=== PATIENT | female | born 1945 | race Caucasian/White ===

== ENCOUNTER 2017-12-06 13:01 | Outpatient (REF) | payer MEDICARE, OTHER, SELFPAY ==
[2017-12-06 23:13] LABS: Anion Gap 4.9 mmol/L (3-11); BUN 18 mg/dL (7-18); CO2 27.1 mmol/L (21.0-32.0); Calcium 8.7 mg/dL (8.5-10.1); Chloride 101 mmol/L (98-107); Estimated GFR 40.26 (mL/min/1.73m2); Glucose 86 mg/dL (70-100); Potassium 4.6 mmol/L (3.5-5.1); Sodium 133 mmol/L (136-145)
== END 2017-12-06 13:21 ==
LOC: NCHCN 13:01
PROVIDERS: PCP Nurse Practitioner Family; Visit Provider Nurse Practitioner Family
DX: I10 Essential (primary) hypertension (principal)
CPT/HCPCS: 80048

== ENCOUNTER 2018-01-05 11:58 | Outpatient (REF) | payer MEDICARE, OTHER, SELFPAY ==
[2018-01-09 10:20] LABS: Hepatitis C Ab w Rflx HCV PCR Negative (NEGAT)
== END 2018-01-05 12:18 ==
LOC: NCHCN 11:58
PROVIDERS: PCP Nurse Practitioner Family; Visit Provider Nurse Practitioner Family
DX: F41.9 Anxiety disorder, unspecified (principal); E03.9 Hypothyroidism, unspecified; Z01.84 Encounter for antibody response examination; I25.10 Atherosclerotic heart disease of native coronary artery without angina pectoris; R91.8 Other nonspecific abnormal finding of lung field
CPT/HCPCS: 86803

== ENCOUNTER 2018-02-20 08:07 | Day surgery (SDC) | payer MEDICARE, OTHER, SELFPAY ==
--- NOTE | 2018-02-19 12:41 | POEE_ITS ---
History of Present Illness Chief Complaint: Progressive decreased vision, left eye Narrative: The patient is a 72-year old female with history of progressive decreased vision in both eyes at both distance and near, left eye worse than right. She notes cloudy foggy, blurry, and fuzzy vision in the left eye. On examination she was noted to have moderate nuclear and cortical cataract with advanced posterior subcapsular cataract of the left eye with visual acuity of 20 /400 best corrected in the left eye. The option of cataract surgery was offered to the patient and she wished to proceed. NOTE: The Chief Complaint, HPI, Past Medical History, Past Surgical History, Family History, Social History, Medications, and complete Ophthalmic Exam with detailed Assessment and Plan have already been documented in the patient's outpatient ophthalmic record and are not covered again in detail here. PFSH Medical History Cortical cataract of left eye (Acute) Nuclear sclerotic cataract of left eye (Acute) Posterior subcapsular age-related cataract of left eye (Acute) Social History Smoking/Tobacco Use Status: Former Tobacco Use Meds Home Medications Medication Instructions Recorded Confirmed Type aspirin [Aspir-81] 1 tab PO DAILY 05/13/13 02/15/18 History losartan 1 tab PO DAILY 05/13/13 02/15/18 History metoprolol tartrate 1 tab PO BID 05/13/13 02/15/18 History pravastatin 1 tab PO HS 05/13/13 02/15/18 History tiotropium bromide [Spiriva with 1 inh INHALATION DAILY 05/13/13 02/15/18 History HandiHaler] albuterol sulfate 3 ml UPD Q2H PRN PRN #90 vial 05/16/13 02/15/18 Rx buspirone 15 mg PO TID 07/23/14 02/15/18 History bupropion HCl [Wellbutrin] 150 mg PO BID 06/14/15 02/15/18 History clonazepam 0.5 - 1 tab PO HS PRN 06/14/15 02/16/18 History amlodipine 5 mg PO DAILY #30 tab-cap 08/04/16 02/15/18 History acetaminophen-codeine 1 ea PO Q6H PRN #5 tablet 09/09/16 02/16/18 Rx [Tylenol-Codeine #3] budesonide-formoterol [Symbicort] 2 puff INHALATION BID #1 hfa.aer.[email or web address] 09/09/16 02/15/18 Rx loratadine 1 tab PO DAILY 07/31/17 02/15/18 History meloxicam 7.5 mg PO BID #60 tab 10/11/17 02/15/18 Rx albuterol sulfate [Ventolin HFA] 2 puff INHALATION .Q4-6 PRN 02/15/18 02/15/18 History cholecalciferol (vitamin D3) 1,000 unit PO DAILY 02/15/18 02/15/18 History [Vitamin D3] clobetasol 1 applic TOPICAL BID 02/15/18 02/15/18 History docusate sodium 100 mg PO DAILY 02/15/18 02/15/18 History levothyroxine 25 mcg PO DAILY 02/15/18 02/15/18 History montelukast [Singulair] 10 mg PO DAILY 02/15/18 02/15/18 History nitroglycerin [Nitrostat] 0.4 mg SUBLINGUAL ONCE 02/15/18 02/15/18 History Allergies Allergy/AdvReac Type Severity Reaction Status Date / Time amoxicillin Allergy Intermediate Hives Unverified 02/16/18 10:55 clarithromycin Allergy Intermediate Hives Verified 02/16/18 10:55 Penicillins Allergy Intermediate Hives Unverified 02/16/18 10:55 Exam OCULAR EXAM:: Visual acuity at distance: Best corrected visual acuity is 20/25 right eye, 20/400 left eye. Pupils: Pupils equal, round, and reactive without afferent pupillary defect IOP: 17 OD, 18 OS Extraocular Motility: Normal Pertinent Slit Lamp Findings: Significant for pupils dilating to 6 mm OU. 2+ nuclear with 2+ cortical and 1+ posterior subcapsular cataract in the right eye. In the left eye there is a 2+ nuclear and cortical cataract with 2-3+ posterior subcapsular cataract. Dilated Funduscopic Examination: Disc cupping is 0.25 OD, 0.4 OS with questionable inferotemporal thinning of the disc margin in the left eye. The retinal vasculature is normal. The macula, peripheral retina and vitreous is normal. BRIGHTNESS ACUITY TESTING (BAT):: Off left eye 20/400 Low: 20/400 Medium: Less than 20/400 High: Less than 20/400 Assessment and Plan (1) Posterior subcapsular age-related cataract of left eye: Current visit: No Status: Acute Assessment: Visually significant cataract, left eye. Plan: Cataract extraction with intraocular lens implantation, left eye (2) Nuclear sclerotic cataract of left eye: Current visit: No Status: Acute Assessment: Visually significant cataract, left eye. Plan: Cataract extraction with intraocular lens implantation, left eye (3) Cortical cataract of left eye: Current visit: No Status: Acute Assessment: Visually significant cataract, left eye. Plan: Cataract extraction with intraocular lens implantation, left eye Note: NOTE:: The details of the planned surgery, including the risks, indications, limitations,expectations,outcome and possible complications were explained to the patient. The patient understands the complications including, but not limited to: infection, hemorrhage, posterior dislocation of the lens or nuclear fragments which may require the intervention of a vitreoretinal surgeon, possible loss of the eye, or from anesthetic complications. The patient has been made aware of the option of not having surgery, that vision following surgery may not be equal to that prior to surgery, and that the planned surgery may not achieve the intended results. Following this discussion, which the patient appeared to understand, the patient wishes to proceed with cataract surgery with lens implantation of the affected eye to improve and maximize vision.
[2018-02-20 08:29] VITALS: BP 156/76; PULSE 64; RESP 16; TEMP 36.6; O2SAT 96
[2018-02-20] MEDS: Tetracaine 0.5% 4 ML BTL OS ×3 (08:36→10:16)
[2018-02-20] MEDS: Lactated Ringers 1,000 ML 80 ML IV (10:04)
[2018-02-20] MEDS: Trypan Blue 0.06% 0.5 ML SYR (10:13)
[2018-02-20] MEDS: Balanced Salt Soln.-PLUS 500 ML BAG (10:13)
[2018-02-20] MEDS: Lidocaine 1% Pres-Free 5 ML VIAL (10:13)
[2018-02-20] MEDS: Lidocaine 2% Jelly 6 ML SYR (10:16)
[2018-02-20] MEDS: Povidone-Iodine Ophth 30 ML BTL (10:17)
--- NOTE | 2018-02-20 10:44 | W.PM.DSUDISC ---
Discharge Plan Discharge Details Reason For Visit: CATARACT OS Attending Provider: Jersey Neri Primary Care Provider: Vera Campoverde Home Meds and New Rx's Prescriptions: No Action amlodipine 5 MG tablet 5 mg PO DAILY Qty: 30 RF: 0 meloxicam 7.5 MG tablet 7.5 mg PO BID Qty: 60 RF: 0 losartan 50 MG tablet 1 tab PO DAILY RF: 0 pravastatin 40 MG tablet 1 tab PO HS RF: 0 metoprolol tartrate 100 MG tablet 1 tab PO BID RF: 0 aspirin [Aspir-81] 81 MG tablet,delayed release (DR/EC) 1 tab PO DAILY RF: 0 tiotropium bromide [Spiriva with HandiHaler] 1 PUFF capsule, w/inhalation device 1 inh Inhalation DAILY RF: 0 albuterol sulfate 3 ML solution for nebulization 3 ml UPD Q2H PRN PRNQty: 90 RF: 0 buspirone 15 MG tablet 15 mg PO TID RF: 0 clonazepam 0.5 MG tablet 0.5 - 1 tab PO HS PRNRF: 0 bupropion HCl [Wellbutrin] 100 MG tablet 150 mg PO BID RF: 0 acetaminophen-codeine [Tylenol-Codeine #3] 1 EACH tablet 1 ea PO Q6H PRNQty: 5 RF: 0 budesonide-formoterol [Symbicort] 10.2 GM HFA aerosol inhaler 2 puff Inhalation BID Qty: 1 RF: 0 loratadine 10 MG tablet 1 tab PO DAILY RF: 0 clobetasol 0.05 % Cream 1 applic TOPICAL BID RF: 0 nitroglycerin [Nitrostat] 0.4 mg Tablet, Sublingual 0.4 mg SUBLINGUAL ONCE RF: 0 docusate sodium 100 mg Capsule 100 mg PO DAILY RF: 0 montelukast [Singulair] 10 mg Tablet 10 mg PO DAILY RF: 0 albuterol sulfate [Ventolin HFA] 90 mcg/actuation Hfa Aerosol Inhaler 2 puff INHALATION .Q4-6 PRN RF: 0 cholecalciferol (vitamin D3) [Vitamin D3] 1,000 unit Capsule 1,000 unit PO DAILY RF: 0 levothyroxine 25 mcg Capsule 25 mcg PO DAILY RF: 0 Discharge Instructions Stand Alone Forms: Post-op Topical Cataract, Geovanna Ganey (DSU) DS: Diagnosis Discharge Diagnosis (1) Posterior subcapsular age-related cataract of left eye: Status: Resolved (2) Nuclear sclerotic cataract of left eye: Status: Resolved (3) Cortical cataract of left eye: Status: Resolved (4) Status post cataract extraction and insertion of intraocular lens of left eye: Status: Chronic
--- NOTE | 2018-02-20 10:45 | W.PM.OP ---
Date of service: 02/20/18 Time of Service: 10:45 Operative Note DATE OF PROCEDURE: 02/20/18 PRE-OP DIAGNOSIS: Cataract, left eye, with poor red reflex POST-OP DIAGNOSIS: same PROCEDURE: Cataract extraction using phacoemulsification with intraocular lens implant, left eye, using capsular staining with Vision Blue SURGEON: Jersey Neri ANESTHESIA: MAC (with local sub-tenon's anesthetic injection) COMPLICATIONS: None Patient was transported to: same day Patient's condition: stable Implants: Raghavendra and Raghavendra / [employer] Tecnis [id number] Indications: Progressive decreased vision due to cataract, left eye, with poor red reflex Procedure Description: CATARACT SURGERY OPERATIVE REPORT PREOPERATIVE DIAGNOSIS: 1. Nuclear/cortical/posterior subcapsular cataract, left eye 2. Poor red reflex secondary to #1 POSTOPERATIVE DIAGNOSIS: Same OPERATION: 1. Cataract extraction using phacoemulsification with posterior chamber intraocular lens implant, left eye. 2. Capsular staining with Vision Blue IOL: IOL Auto Porter/Model: Raghavendra & Raghavendra / CATRACHITO Tecnis [id number] IOL Power: + 20.50 diopters IOL Serial Number: [id number] Optic Diameter: 6.0 mm Haptic/Overall Diameter: 13.0 mm PHACO INFO: Santosh Centurion Vision System with OZil and Active Fluidics Cumulative Dispersed Energy (CDE): 14.71 seconds SURGEON: Jersey Neri MD, TANIYA ANESTHESIA: Monitored [facility] Care (MAC), with local sub-tenon's anesthetic infiltration COMPLICATIONS: None SPECIMENS: None INDICATIONS FOR PROCEDURE: The patient is a 72-year-old female with history of progressive decreased vision in her left eye. She is noted to have a moderate nuclear and cortical cataract with a dense posterior subcapsular cataract with visual acuity of 20/400. The option of cataract surgery was offered to the patient and she wished to proceed. PROCEDURE: The correct surgical eye was identified and marked as the left eye and the pupil was dilated in the preoperative area using mydriatics and cycloplegics. The dilated pupil size was 7.0 mm. Oral sedation was administered in the form of an Imprimis MKO Melt (midazolam 3mg/ketamine 25mg/ondansetron 2mg). . .The patient was brought to the operating room where cardiopulmonary monitoring was instituted and surgical time-out was performed, confirming the correct operative eye and IOL power. She recieved 1mg of IV Versed in the OR for additional sedation. Topical anesthesia was administered and ophthalmic povidone-iodine 5% was instilled into the conjunctival fornices. Lidocaine gel was applied to the cornea and the taye-ocular area was prepped with Betadine 10% solution and draped in the usual sterile fashion for intraocular surgery. Steri-strips were used to cover the lashes and lid margins and an adhesive eye drape was placed. Care was taken to isolate the lashes and lid margins under the Steri-strips and adhesive eye drape. A lid speculum was placed between the lids of the operative eye and the Duane-Barb operating microscope was maneuvered into position. Romana scissors were then used to make a conjunctival buttonhole approximately 6mm posterior to the limbus in the inferonasal quadrant. Blunt dissection was carried out to expose bare sclera, and a blunt-tipped sub-tenon?s anesthesia cannula was introduced and passed posteriorly along the globe where non-preserved plain lidocaine was injected into posterior sub-Tenon?s space. A sideport knife was used to make a paracentesis port at the 12:00 position. Air was injected into the anterior chamber, followed by Vision Blue, which was painted over the anterior capsule and then irrigated out using BSS. The anterior chamber was filled with Healon GV. A 2.4mm keratome knife was used to create a half-thickness groove at the limbus and then to construct a three-plane near-clear corneal tunnel extending 2.0mm into clear cornea at the 3:00 position. A flap was raised on the anterior capsule and capsulorhexis forceps were used to complete a continuous curvilinear capsulorhexis of 5.5mm. Balanced salt solution was then used to perform cortical cleaving hydrodissection and nuclear hydrodelineation until the lens could be freely rotated within the capsular bag. The lens nucleus was then disassembled and removed within the capsular bag and iris plane using phacoemulsification. Residual cortical material was removed using the 45-degree angled silicone I/A tip with 0.3mm port. The posterior capsule was carefully polished to remove as much residual lens epithelial cells as safely possible. The capsular bag was then inflated and the anterior chamber deepened with viscoelastic. The lens implant described above was inserted into the capsular bag using the CATRACHITO [place] Injector. A Kuglen hook was used to dial the IOL into position. Residual viscoelastic was then removed first from posterior to the IOL, then from the anterior chamber using the I/A handpiece. The lens implant was noted to center nicely within the capsular bag. The incisions were stromally hydrated, and the anterior chamber was reformed using BSS. Then 0.4cc of moxifloxacin 1.5mg/ml were injected into the capsular bag and anterior chamber. The incisions were checked with a Weck spear and found to be secure. Several drops of ophthalmic povidone-iodine 5% were then applied to the eye followed by two drops of Imprimis combination moxifloxacin/dexamethasone solution. The drapes were removed and a clear plastic protective eye shield was placed over the eye. The patient was then returned to Same Day Surgery in stable condition.
--- NOTE | 2018-02-20 10:50 | ROE_ITS ---
Date of service: 02/20/18 Time of Service: 10:45 Operative Note DATE OF PROCEDURE: 02/20/18 PRE-OP DIAGNOSIS: Cataract, left eye, with poor red reflex POST-OP DIAGNOSIS: same PROCEDURE: Cataract extraction using phacoemulsification with intraocular lens implant, left eye, using capsular staining with Vision Blue SURGEON: Jersey Neri ANESTHESIA: MAC (with local sub-tenon's anesthetic injection) COMPLICATIONS: None Patient was transported to: same day Patient's condition: stable Implants: Raghavendra and Raghavendra / [employer] Tecnis [id number] Indications: Progressive decreased vision due to cataract, left eye, with poor red reflex Procedure Description: CATARACT SURGERY OPERATIVE REPORT PREOPERATIVE DIAGNOSIS: 1. Nuclear/cortical/posterior subcapsular cataract, left eye 2. Poor red reflex secondary to #1 POSTOPERATIVE DIAGNOSIS: Same OPERATION: 1. Cataract extraction using phacoemulsification with posterior chamber intraocular lens implant, left eye. 2. Capsular staining with Vision Blue IOL: IOL Hydro[employer] Plant Engineer/Model: Raghavendra & Raghavendra / CATRACHITO Tecnis [id number] IOL Power: + 20.50 diopters IOL Serial Number: [id number] Optic Diameter: 6.0 mm Haptic/Overall Diameter: 13.0 mm PHACO INFO: Santosh [employer] Vision System with OZil and Active Fluidics Cumulative Dispersed Energy (CDE): 14.71 seconds SURGEON: Jersey Neri MD, TANIYA ANESTHESIA: Monitored A [facility] Care (MAC), with local sub-tenon's anesthetic infiltration COMPLICATIONS: None SPECIMENS: None INDICATIONS FOR PROCEDURE: The patient is a 72-year-old female with history of progressive decreased vision in her left eye. She is noted to have a moderate nuclear and cortical cataract with a dense posterior subcapsular cataract with visual acuity of 20/ 400. The option of cataract surgery was offered to the patient and she wished to proceed. PROCEDURE: The correct surgical eye was identified and marked as the left eye and the pupil was dilated in the preoperative area using mydriatics and cycloplegics. The dilated pupil size was 7.0 mm. Oral sedation was administered in the form of an Imprimis MKO Melt (midazolam 3mg/ketamine 25mg/ ondansetron 2mg). . .The patient was brought to the operating room where cardiopulmonary monitoring was instituted and surgical time-out was performed, confirming the correct operative eye and IOL power. She recieved 1mg of IV Versed in the OR for additional sedation. Topical anesthesia was administered and ophthalmic povidone-iodine 5% was instilled into the conjunctival fornices. Lidocaine gel was applied to the cornea and the taye-ocular area was prepped with Betadine 10% solution and draped in the usual sterile fashion for intraocular surgery. Steri-strips were used to cover the lashes and lid margins and an adhesive eye drape was placed. Care was taken to isolate the lashes and lid margins under the Steri-strips and adhesive eye drape. A lid speculum was placed between the lids of the operative eye and the Duane-Barb operating microscope was maneuvered into position. Romana scissors were then used to make a conjunctival buttonhole approximately 6mm posterior to the limbus in the inferonasal quadrant. Blunt dissection was carried out to expose bare sclera, and a blunt-tipped sub-tenon? s anesthesia cannula was introduced and passed posteriorly along the globe where non-preserved plain lidocaine was injected into posterior sub-Tenon?s space. A sideport knife was used to make a paracentesis port at the 12:00 position. Air was injected into the anterior chamber, followed by Vision Blue, which was painted over the anterior capsule and then irrigated out using BSS. The anterior chamber was filled with Healon GV. A 2.4mm keratome knife was used to create a half-thickness groove at the limbus and then to construct a three-plane near-clear corneal tunnel extending 2.0mm into clear cornea at the 3 :00 position. A flap was raised on the anterior capsule and capsulorhexis forceps were used to complete a continuous curvilinear capsulorhexis of 5.5mm. Balanced salt solution was then used to perform cortical cleaving hydrodissection and nuclear hydrodelineation until the lens could be freely rotated within the capsular bag. The lens nucleus was then disassembled and removed within the capsular bag and iris plane using phacoemulsification. Residual cortical material was removed using the 45-degree angled silicone I/A tip with 0.3mm port. The posterior capsule was carefully polished to remove as much residual lens epithelial cells as safely possible. The capsular bag was then inflated and the anterior chamber deepened with viscoelastic. The lens implant described above was inserted into the capsular bag using the CATRACHITO [place] Injector. A Kuglen hook was used to dial the IOL into position. Residual viscoelastic was then removed first from posterior to the IOL, then from the anterior chamber using the I/A handpiece. The lens implant was noted to center nicely within the capsular bag. The incisions were stromally hydrated , and the anterior chamber was reformed using BSS. Then 0.4cc of moxifloxacin 1.5mg/ml were injected into the capsular bag and anterior chamber. The incisions were checked with a Weck spear and found to be secure. Several drops of ophthalmic povidone-iodine 5% were then applied to the eye followed by two drops of Imprimis combination moxifloxacin/dexamethasone solution. The drapes were removed and a clear plastic protective eye shield was placed over the eye. The patient was then returned to Same Day Surgery in stable condition.
[2018-02-20 11:00] VITALS: BP 138/80; PULSE 64; RESP 16; TEMP 36.6; O2SAT 94
== END 2018-02-20 11:15 | disposition home or self-care (01) ==
LOC: SUR 08:07
PROVIDERS: PCP Nurse Practitioner Family; Visit Provider Ophthalmology
PROC: (CPT 66982; principal; 2018-02-20 10:30)
DX: H25.812 Combined forms of age-related cataract, left eye (principal); H35.89 Other specified retinal disorders; J44.9 Chronic obstructive pulmonary disease, unspecified; I10 Essential (primary) hypertension
CPT/HCPCS: 66982; V2632; J2250

== ENCOUNTER 2018-03-06 07:00 | Day surgery (SDC) | payer MEDICARE, OTHER, SELFPAY ==
--- NOTE | 2018-03-05 15:29 | POEE_ITS ---
History of Present Illness Chief Complaint: Progressive decreased vision, right eye Narrative: The patient is a 72-year-old female with history of progressive decreased vision in both eyes at both distance and near, left eye worse than right. She noted cloudy foggy blurry and fuzzy vision with significant glare from headlights. On examination she was noted to have bilateral nuclear cortical and posterior subcapsular cataract, left eye greater than right. She underwent cataract surgery in the left eye on 02/20/2018. Postoperatively she has regained uncorrected visual acuity of 20/20. She now presents for cataract surgery of the right eye. NOTE: The Chief Complaint, HPI, Past Medical History, Past Surgical History, Family History, Social History, Medications, and complete Ophthalmic Exam with detailed Assessment and Plan have already been documented in the patient's outpatient ophthalmic record and are not covered again in detail here. PFSH Cortical cataract of right eye (Acute) Nuclear sclerotic cataract of right eye (Acute) Posterior subcapsular age-related cataract, right eye (Acute) Cortical cataract of left eye (Resolved) Nuclear sclerotic cataract of left eye (Resolved) Posterior subcapsular age-related cataract of left eye (Resolved) Status post cataract extraction and insertion of intraocular lens of left eye ( Chronic 02/20/18) Medical History Cortical cataract of right eye (Acute) Nuclear sclerotic cataract of right eye (Acute) Posterior subcapsular age-related cataract, right eye (Acute) Cortical cataract of left eye (Resolved) Nuclear sclerotic cataract of left eye (Resolved) Posterior subcapsular age-related cataract of left eye (Resolved) Social History Smoking/Tobacco Use Status: Former Tobacco Use Surgical History Status post cataract extraction and insertion of intraocular lens of left eye ( Chronic 02/20/18) Social History Smoking/Tobacco Use Status: Former Tobacco Use Meds Home Medications Medication Instructions Recorded Confirmed Type aspirin [Aspir-81] 1 tab PO DAILY 05/13/13 02/15/18 History losartan 1 tab PO DAILY 05/13/13 02/15/18 History metoprolol tartrate 1 tab PO BID 05/13/13 02/15/18 History pravastatin 1 tab PO HS 05/13/13 02/15/18 History tiotropium bromide [Spiriva with 1 inh INHALATION DAILY 05/13/13 02/15/18 History HandiHaler] albuterol sulfate 3 ml UPD Q2H PRN PRN #90 vial 05/16/13 02/15/18 Rx buspirone 15 mg PO TID 07/23/14 02/15/18 History bupropion HCl [Wellbutrin] 150 mg PO BID 06/14/15 02/15/18 History clonazepam 0.5 - 1 tab PO HS PRN 06/14/15 02/20/18 History amlodipine 5 mg PO DAILY #30 tab-cap 08/04/16 02/15/18 History acetaminophen-codeine 1 ea PO Q6H PRN #5 tablet 09/09/16 02/20/18 Rx [Tylenol-Codeine #3] budesonide-formoterol [Symbicort] 2 puff INHALATION BID #1 hfa.aer.ad 09/09/16 02/15/18 Rx loratadine 1 tab PO DAILY 07/31/17 02/15/18 History meloxicam 7.5 mg PO BID #60 tab 10/11/17 02/15/18 Rx albuterol sulfate [Ventolin HFA] 2 puff INHALATION .Q4-6 PRN 02/15/18 02/20/18 History cholecalciferol (vitamin D3) 1,000 unit PO DAILY 02/15/18 02/15/18 History [Vitamin D3] clobetasol 1 applic TOPICAL BID 02/15/18 02/15/18 History docusate sodium 100 mg PO DAILY 02/15/18 02/15/18 History levothyroxine 25 mcg PO DAILY 02/15/18 02/15/18 History montelukast [Singulair] 10 mg PO DAILY 02/15/18 02/15/18 History nitroglycerin [Nitrostat] 0.4 mg SUBLINGUAL ONCE 02/15/18 02/15/18 History Allergies Allergy/AdvReac Type Severity Reaction Status Date / Time amoxicillin Allergy Intermediate Hives Unverified 02/16/18 10:55 clarithromycin Allergy Intermediate Hives Verified 02/16/18 10:55 Penicillins Allergy Intermediate Hives Unverified 02/20/18 08:22 Exam OCULAR EXAM:: Most recent ophthalmic exam revealed best corrected visual acuity of 20/30 right eye, 20/20 left eye. Pupils equal, round, and reactive without afferent pupillary defect intraocular pressure is 17 OD, 18 OS. Extraocular motility is normal. Slit-lamp examination is significant for pupils dilating to 6 mm OU. 2+ nuclear with 2+ cortical and 1-2+ posterior subcapsular cataract , right eye. In the left eye there is a well-positioned PCIOL with clear posterior capsule. Funduscopic examination reveals disc cupping of 0.25 OD, 0.4 OS with good color. The optic nerves have good perfusion and normal color. The retinal vasculature is normal without significant tortuosity or abnormality. The maculas are normal in appearance with normal contour and foveal reflex appropriate for age. The peripheral retina and vitreous are normal. BRIGHTNESS ACUITY TESTING (BAT):: Brightness acuity testing on the office setting is 20/30 right eye. Low is 20/40, medium is 20/50, high is 20/80. Assessment and Plan (1) Posterior subcapsular age-related cataract, right eye: Current visit: No Status: Acute Assessment: Visually significant cataract, right eye. Plan: Cataract extraction with intraocular lens implantation, right eye (2) Nuclear sclerotic cataract of right eye: Current visit: No Status: Acute Assessment: Visually significant cataract, right eye. Plan: Cataract extraction with intraocular lens implantation, right eye (3) Cortical cataract of right eye: Current visit: No Status: Acute Assessment: Visually significant cataract, right eye. Plan: Cataract extraction with intraocular lens implantation, right eye Note: NOTE:: The details of the planned surgery, including the risks, indications, limitations,expectations,outcome and possible complications were explained to the patient. The patient understands the complications including, but not limited to: infection, hemorrhage, posterior dislocation of the lens or nuclear fragments which may require the intervention of a vitreoretinal surgeon, possible loss of the eye, or from anesthetic complications. The patient has been made aware of the option of not having surgery, that vision following surgery may not be equal to that prior to surgery, and that the planned surgery may not achieve the intended results. Following this discussion, which the patient appeared to understand, the patient wishes to proceed with cataract surgery with lens implantation of the affected eye to improve and maximize vision.
[2018-03-06 07:11] VITALS: BP 149/54; PULSE 66; RESP 20; TEMP 36.8; O2SAT 93
[2018-03-06] MEDS: Tetracaine 0.5% 4 ML BTL OD ×4 (07:21→08:11)
[2018-03-06] MEDS: Tropicam./Phenyleph. (1/2.5%) 5 ML BTL OD ×3 (07:22→07:39)
[2018-03-06] MEDS: Lidocaine 2% Jelly 6 ML SYR (08:11)
[2018-03-06] MEDS: Povidone-Iodine Ophth 30 ML BTL (08:11)
[2018-03-06] MEDS: Lidocaine 1% Pres-Free 5 ML VIAL (08:16)
[2018-03-06] MEDS: Balanced Salt Soln.-PLUS 500 ML BAG (08:18)
[2018-03-06] MEDS: Trypan Blue 0.06% 0.5 ML SYR (08:20)
--- NOTE | 2018-03-06 08:40 | W.PM.DSUDISC ---
Discharge Plan Discharge Details Reason For Visit: CATARACT OD Attending Provider: Jersey Neri Primary Care Provider: Vera Campoverde Home Meds and New Rx's Prescriptions: No Action amlodipine 5 MG tablet 5 mg PO DAILY Qty: 30 RF: 0 meloxicam 7.5 MG tablet 7.5 mg PO BID Qty: 60 RF: 0 losartan 50 MG tablet 1 tab PO DAILY RF: 0 pravastatin 40 MG tablet 1 tab PO HS RF: 0 metoprolol tartrate 100 MG tablet 1 tab PO BID RF: 0 aspirin [Aspir-81] 81 MG tablet,delayed release (DR/EC) 1 tab PO DAILY RF: 0 tiotropium bromide [Spiriva with HandiHaler] 1 PUFF capsule, w/inhalation device 1 inh Inhalation DAILY RF: 0 albuterol sulfate 3 ML solution for nebulization 3 ml UPD Q2H PRN PRNQty: 90 RF: 0 buspirone 15 MG tablet 15 mg PO TID RF: 0 clonazepam 0.5 MG tablet 0.5 - 1 tab PO HS PRNRF: 0 bupropion HCl [Wellbutrin] 100 MG tablet 150 mg PO BID RF: 0 budesonide-formoterol [Symbicort] 10.2 GM HFA aerosol inhaler 2 puff Inhalation BID Qty: 1 RF: 0 loratadine 10 MG tablet 1 tab PO DAILY RF: 0 nitroglycerin [Nitrostat] 0.4 mg Tablet, Sublingual 0.4 mg SUBLINGUAL ONCE RF: 0 docusate sodium 100 mg Capsule 100 mg PO DAILY RF: 0 montelukast [Singulair] 10 mg Tablet 10 mg PO DAILY RF: 0 albuterol sulfate [Ventolin HFA] 90 mcg/actuation Hfa Aerosol Inhaler 2 puff INHALATION .Q4-6 PRN RF: 0 cholecalciferol (vitamin D3) [Vitamin D3] 1,000 unit Capsule 1,000 unit PO DAILY RF: 0 levothyroxine 25 mcg Capsule 25 mcg PO DAILY RF: 0 Discharge Instructions Stand Alone Forms: Post-op Topical CataractGeovanna (DSU) DS: Diagnosis Discharge Diagnosis (1) Posterior subcapsular age-related cataract, right eye: Status: Resolved (2) Nuclear sclerotic cataract of right eye: Status: Resolved (3) Cortical cataract of right eye: Status: Resolved (4) Status post cataract extraction and insertion of intraocular lens of right eye: Status: Chronic
--- NOTE | 2018-03-06 08:42 | W.PM.OP ---
Date of service: 03/06/18 Time of Service: 08:43 Operative Note DATE OF PROCEDURE: 03/06/18 PRE-OP DIAGNOSIS: Cataract, right eye, with poor red reflex PROCEDURE: Cataract extraction using phacoemulsification with intraocular lens implantation, right eye, using capsular staining with Vision Blue SURGEON: Jersey Neri ANESTHESIA: MAC (with local sub-tenon's anesthetic injection) PATHOLOGY: none sent COMPLICATIONS: None Patient was transported to: same day Patient's condition: stable Implants: Raghavendra and Raghavendra / [employer] Tecnis [id number] Indications: Progressive visual loss due to cataract, right eye Procedure Description: CATARACT SURGERY OPERATIVE REPORT PREOPERATIVE DIAGNOSIS: 1. Nuclear/cortical/posterior subcapsular cataract, right eye 2. Poor red reflex secondary to #1 POSTOPERATIVE DIAGNOSIS: Same OPERATION: 1. Cataract extraction using phacoemulsification with posterior chamber intraocular lens implant, right eye. 2. Capsular staining with Vision Blue IOL: IOL Handbook Writer/Model: Raghavendra & Raghavendra / CATRACHITO Tecnis [id number] IOL Power: + 21.0 diopters IOL Serial Number: [id number] Optic Diameter: 6.0mm Haptic/Overall Diameter: 13.0mm PHACO INFO: Santosh Porterourion Vision System with OZil and Active Fluidics Cumulative Dispersed Energy (CDE): 8.80 seconds SURGEON: Jersey Neri MD, TANIYA ANESTHESIA: Monitored Anesthesia Care (MAC), with local sub-tenon's anesthetic infiltration COMPLICATIONS: None SPECIMENS: None INDICATIONS FOR PROCEDURE: The patient is a 72-year-old female with history of bilateral nuclear cortical and posterior subcapsular cataracts, left eye worse than right. She has already undergone cataract surgery in the left eye and is doing well postoperatively. She now presents for cataract surgery in the right eye. PROCEDURE: The correct surgical eye was identified and marked as the right eye and the pupil was dilated in the preoperative area using mydriatics, cycloplegics, and NSAIDS (except in aspirin allergic patients). The dilated pupil size was 7.0 mm. Oral sedation was administered in the form of an Imprimis MKO Melt (midazolam 3mg/ketamine 25mg/ondansetron 2mg). The patient was brought to the operating room where cardiopulmonary monitoring was instituted and surgical time-out was performed, confirming the correct operative eye and IOL power. Topical anesthesia was administered and ophthalmic povidone-iodine 5% was instilled into the conjunctival fornices. Lidocaine gel was applied to the cornea and the taye-ocular area was prepped with Betadine 10% solution and draped in the usual sterile fashion for intraocular surgery, including an aperture drape. A Tegaderm transparent film dressing was cut in half and used to cover the lashes and lid margins. Care was taken to sequester the lashes and lid margins under the Tegaderm dressing. A lid speculum was placed between the lids of the operative eye and the Duane-Barb operating microscope was maneuvered into position. Romana scissors were then used to make a conjunctival buttonhole approximately 6mm posterior to the limbus in the inferonasal quadrant. Blunt dissection was carried out to expose bare sclera, and a blunt-tipped sub-tenon?s anesthesia cannula was introduced and passed posteriorly along the globe where non-preserved plain lidocaine was injected into posterior sub-Tenon?s space. A sideport knife was used to make a paracentesis port at the 7:00 position. Air was injected into the anterior chamber, followed by Vision Blue, which was painted over the anterior capsule and then irrigated out with BSS. The anterior chamber was filled with Healon GV. A 2.4mm keratome knife was used to create a half-thickness groove at the limbus and then to construct a three-plane near-clear corneal tunnel extending 2.0mm into clear cornea at the 10:00 position. A flap was raised on the anterior capsule and capsulorhexis forceps were used to complete a continuous curvilinear capsulorhexis of 5.5 mm. Balanced salt solution was then used to perform cortical cleaving hydrodissection and nuclear hydrodelineation until the lens could be freely rotated within the capsular bag. The lens nucleus was then disassembled and removed within the capsular bag and iris plane using phacoemulsification. Residual cortical material was removed using the 45-degree angled silicone I/A tip with 0.3mm port. The posterior capsule was carefully polished to remove as much residual lens epithelial cells as safely possible. The capsular bag was then inflated and the anterior chamber deepened with viscoelastic. The lens implant described above was inserted into the capsular bag using the CATRACHITO [place] Injector. A Kuglen hook was used to dial the IOL into position. Residual viscoelastic was then removed first from posterior to the IOL, then from the anterior chamber using the I/A handpiece. The lens implant was noted to center nicely within the capsular bag. The incisions were stromally hydrated, and the anterior chamber was reformed using BSS. Then 0.4cc of moxifloxacin 1.5mg/ml were injected into the capsular bag and anterior chamber. The incisions were checked with a Weck spear and found to be secure. Several drops of ophthalmic povidone-iodine 5% were then applied to the eye followed by two drops of Imprimis combination moxifloxacin/dexamethasone solution. The drapes were removed and a clear plastic protective eye shield was placed over the eye. The patient was then returned to Same Day Surgery in stable condition.
--- NOTE | 2018-03-06 08:45 | ROE_ITS ---
Date of service: 03/06/18 Time of Service: 08:43 Operative Note DATE OF PROCEDURE: 03/06/18 PRE-OP DIAGNOSIS: Cataract, right eye, with poor red reflex PROCEDURE: Cataract extraction using phacoemulsification with intraocular lens implantation, right eye, using capsular staining with Vision Blue SURGEON: Jersey Neri ANESTHESIA: MAC (with local sub-tenon's anesthetic injection) PATHOLOGY: none sent COMPLICATIONS: None Patient was transported to: same day Patient's condition: stable Implants: Raghavendra and Raghavendra / [employer] Tecnis [id number] Indications: Progressive visual loss due to cataract, right eye Procedure Description: CATARACT SURGERY OPERATIVE REPORT PREOPERATIVE DIAGNOSIS: 1. Nuclear/cortical/posterior subcapsular cataract, right eye 2. Poor red reflex secondary to #1 POSTOPERATIVE DIAGNOSIS: Same OPERATION: 1. Cataract extraction using phacoemulsification with posterior chamber intraocular lens implant, right eye. 2. Capsular staining with Vision Blue IOL: IOL Wood Grinder Operator/Model: Raghavendra & Raghavendra / CATRACHITO Tecnis [id number] IOL Power: + 21.0 diopters IOL Serial Number: [id number] Optic Diameter: 6.0mm Haptic/Overall Diameter: 13.0mm PHACO INFO: Santosh [employer]ion Vision System with OZil and Active Fluidics Cumulative Dispersed Energy (CDE): 8.80 seconds SURGEON: Jersey Neri MD, TANIYA ANESTHESIA: Monitored Anesthesia Care (MAC), with local sub-tenon's anesthetic infiltration COMPLICATIONS: None SPECIMENS: None INDICATIONS FOR PROCEDURE: The patient is a 72-year-old female with history of bilateral nuclear cortical and posterior subcapsular cataracts, left eye worse than right. She has already undergone cataract surgery in the left eye and is doing well postoperatively. She now presents for cataract surgery in the right eye. PROCEDURE: The correct surgical eye was identified and marked as the right eye and the pupil was dilated in the preoperative area using mydriatics, cycloplegics, and NSAIDS (except in aspirin allergic patients). The dilated pupil size was 7.0 mm. Oral sedation was administered in the form of an Imprimis MKO Melt (midazolam 3mg/ketamine 25mg/ondansetron 2mg). The patient was brought to the operating room where cardiopulmonary monitoring was instituted and surgical time-out was performed, confirming the correct operative eye and IOL power. Topical anesthesia was administered and ophthalmic povidone-iodine 5% was instilled into the conjunctival fornices. Lidocaine gel was applied to the cornea and the taye-ocular area was prepped with Betadine 10% solution and draped in the usual sterile fashion for intraocular surgery, including an aperture drape. A Tegaderm transparent film dressing was cut in half and used to cover the lashes and lid margins. Care was taken to sequester the lashes and lid margins under the Tegaderm dressing. A lid speculum was placed between the lids of the operative eye and the Duane-Barb operating microscope was maneuvered into position. Romana scissors were then used to make a conjunctival buttonhole approximately 6mm posterior to the limbus in the inferonasal quadrant. Blunt dissection was carried out to expose bare sclera, and a blunt-tipped sub-tenon? s anesthesia cannula was introduced and passed posteriorly along the globe where non-preserved plain lidocaine was injected into posterior sub-Tenon?s space. A sideport knife was used to make a paracentesis port at the 7:00 position. Air was injected into the anterior chamber, followed by Vision Blue, which was painted over the anterior capsule and then irrigated out with BSS. The anterior chamber was filled with Healon GV. A 2.4mm keratome knife was used to create a half-thickness groove at the limbus and then to construct a three-plane near-clear corneal tunnel extending 2.0mm into clear cornea at the 10:00 position. A flap was raised on the anterior capsule and capsulorhexis forceps were used to complete a continuous curvilinear capsulorhexis of 5.5 mm. Balanced salt solution was then used to perform cortical cleaving hydrodissection and nuclear hydrodelineation until the lens could be freely rotated within the capsular bag. The lens nucleus was then disassembled and removed within the capsular bag and iris plane using phacoemulsification. Residual cortical material was removed using the 45-degree angled silicone I/A tip with 0.3mm port. The posterior capsule was carefully polished to remove as much residual lens epithelial cells as safely possible. The capsular bag was then inflated and the anterior chamber deepened with viscoelastic. The lens implant described above was inserted into the capsular bag using the CATRACHITO [place] Injector. A Kuglen hook was used to dial the IOL into position. Residual viscoelastic was then removed first from posterior to the IOL, then from the anterior chamber using the I/A handpiece. The lens implant was noted to center nicely within the capsular bag. The incisions were stromally hydrated , and the anterior chamber was reformed using BSS. Then 0.4cc of moxifloxacin 1.5mg/ml were injected into the capsular bag and anterior chamber. The incisions were checked with a Weck spear and found to be secure. Several drops of ophthalmic povidone-iodine 5% were then applied to the eye followed by two drops of Imprimis combination moxifloxacin/dexamethasone solution. The drapes were removed and a clear plastic protective eye shield was placed over the eye. The patient was then returned to Same Day Surgery in stable condition.
[2018-03-06 09:11] VITALS: BP 122/77; PULSE 61; RESP 20; TEMP 37.3; O2SAT 93
== END 2018-03-06 09:12 | disposition home or self-care (01) ==
LOC: SUR 07:00
PROVIDERS: PCP Nurse Practitioner Family; Visit Provider Ophthalmology
PROC: (CPT 66982; principal; 2018-03-06 08:30)
DX: H25.811 Combined forms of age-related cataract, right eye (principal); H35.89 Other specified retinal disorders; Z98.42 Cataract extraction status, left eye; Z96.1 Presence of intraocular lens; J44.9 Chronic obstructive pulmonary disease, unspecified; I10 Essential (primary) hypertension
CPT/HCPCS: 66982; V2632

== ENCOUNTER 2018-07-18 11:56 | Outpatient (CLI) | payer MEDICARE, SELFPAY ==
[2018-07-18 13:24] LABS: ALT 37 U/L (12-78); AST 28 U/L (15-37); Albumin 3.5 g/dL (3.4-5.0); Alkaline Phosphatase 132 U/L (46-116); Anion Gap 8.6 mmol/L (3-11); BUN 15 mg/dL (7-18); Bilirubin, Total 0.4 mg/dL (0.2-1.0); CO2 28.4 mmol/L (21.0-32.0); CREATININE 1.31 mg/dL (0.55-1.02); Calcium 9.1 mg/dL (8.5-10.1); Chloride 97 mmol/L (98-107); Estimated GFR 39.91 (mL/min/1.73m2); Glucose 85 mg/dL (70-100); Sodium 134 mmol/L (136-145); TSH (W/Ref FT4) 4.95 uIU/mL (0.358-3.74)
[2018-07-18 13:40] LABS: FREE T4 1.16 ng/dL (0.76-1.46)
[2018-07-19 14:29] LABS: Parathyroid Hormone,Intact 120 pg/ml (19-88)
[2018-07-20 08:49] LABS: Vitamin D 25 Total 37.4 ng/ml (30-100)
== END 2018-07-18 12:16 ==
PROVIDERS: PCP Nurse Practitioner Family; Visit Provider Nurse Practitioner Family
DX: E21.5 Disorder of parathyroid gland, unspecified (principal); R79.89 Other specified abnormal findings of blood chemistry; E03.9 Hypothyroidism, unspecified; N18.4 Chronic kidney disease, stage 4 (severe); R42 Dizziness and giddiness; E87.1 Hypo-osmolality and hyponatremia; K59.00 Constipation, unspecified
CPT/HCPCS: 36415; 80053; 82306; 83970; 84439; 84443

== ENCOUNTER 2018-09-19 14:43 | Outpatient (CLI) | payer MEDICARE, SELFPAY ==
--- NOTE | 2018-09-19 10:11 | DI.RAD_ITS ---
SYMPTOM/DIAGNOSIS: SOB R06.02, COPD J44.9 LUNG NODULE R91.8 PA AND LATERAL CHEST: Comparison is made with 31 July 2017 The heart size is normal. Emphysematous changes are again noted. There are underlying fibrotic changes as well, greater in the lower lobes. No superimposed infiltrate, effusion or pulmonary edema is seen. IMPRESSION: Stable changes of COPD
== END 2018-09-19 15:03 ==
PROVIDERS: PCP Nurse Practitioner Family; Visit Provider Nurse Practitioner Family
DX: J44.9 Chronic obstructive pulmonary disease, unspecified (principal); R91.8 Other nonspecific abnormal finding of lung field; R06.02 Shortness of breath
CPT/HCPCS: 71046

== ENCOUNTER 2018-10-21 20:39 | Inpatient (IN) | payer MEDICARE, SELFPAY ==
[2018-10-21] VITALS (21 sets, daily range): BP systolic 115–180; BP diastolic 39–98; PULSE 83–93; RESP 1–33; TEMP 37.1; O2SAT 94–96
--- NOTE | 2018-10-21 21:14 | DI.CT_ITS ---
SYMPTOM/DIAGNOSIS: HEADACHE CT BRAIN: Noncontrast examination was performed. There is patient motion artifact which does limit evaluation of the examination. Comparison is 12/18/15 The ventricles and sulci are consistent with the patient's age. No acute territorial infarct, hemorrhage, midline shift or mass effect is seen. The ventricles are intact. The basilar cisterns are patent. The visualized paranasal sinuses are clear as are the mastoid air cells. The calvarium is intact. IMPRESSION: No acute intracranial process.
--- NOTE | 2018-10-21 21:18 | ED.GENADUL_ITS ---
Discharge Plan Disposition Patient Disposition: [facility] INPATIENT Condition: Stable Discharge Details Chief Complaint: RespSymp Clinical Impression: Community acquired pneumonia, Hypoxemia, Acute hyponatremia, Acute UTI Admit Date/Time: 10/23/18 09:51 Admit Provider: Jeff Garcia Attending Provider: Steff Banda Primary Care Provider: Vera Campoverde ED Provider: Mario Katz Discharge Data Discharge Date/Time-TO BE ENTERED AT DEPARTURE: 10/22/18 08:22 Medical Decision Making <Jonas Krishna MD - Last Filed: 10/24/18 03:31> 21:45 --73-year-old female with multiple medical problems including history of COPD on intermittent home O2, coronary artery disease status post remote stent, here with headache over the past week, shortness of breath which she feels is a mild exacerbation of her COPD, decreased oral intake and decreased urination over the past month. Patient is hypertensive. She saturating well on nasal cannula oxygen. Daughters are also concerned that the patient has been depressed. Patient admits that she has been tearful at times. She is not suicidal. Plan to obtain CT of the head given her headache. I will give her Tylenol for pain. Plan to reassess. Presentation is not consistent with meningitis -she has full range of motion of the neck with no neck stiffness and no fever. Unlikely subarachnoid hemorrhage -pain is severe but has not described as a worst headache ever and was not sudden onset. Patient has had the pain persistently for the past 1 week, Patient is claustrophobic. I will give a dose of Xanax to allow for CT imaging. 22:15 --initial labs reviewed: Troponin is negative the patient does have an elevation of BNP above baseline. Care signed out to Dr. Katz with plan to follow-up on labs including UA, cxr, ecg, CT head, reassess patient for disposition. At signout bedside with Dr. Katz, patient notes that she feels she would benefit from a course of prednisone for COPD exacerbation. <Mario Katz DO - Last Filed: 10/21/18 23:01> The case was signed out to me by my colleague Dr. Jonas Krishna. We are pending imaging results and labs. Laboratory work-up demonstrates mild white count at 12.4, mild left shift. Electrolytes demonstrate a slightly low sodium at 128, chloride of 94, stable BUN and creatinine is at the patient's baseline, troponin normal, proBNP elevated compared to normal at 2800. Ambulatory pulse ox on 2 L demonstrated notable decrease in oxygenation to less than 90. She was 86% on arrival when she first got here. Chest x-ray shows evidence of pneumonia in the right lower lobe which correlates clinically with the auscultated crackles and findings. With the patient's notable decompensation at home, her decrease in ADL capability, and her pneumonia, hypoxemia and risk factors I feel she would benefit from inpatient admission. I discussed the case with Dr. Dorsey, he agrees. Currently there are no beds available in the hospital secondary to staffing issues, however there will be available beds at 7 AM. We will keep the patient in the ED for the time being. I have extensively reviewed the treatment plan with the patient. I have addressed all patient concerns at this time. I have also discussed the plan with the admitting physician and they agree with the current assessment and plan and have agreed to assume responsibility for the patient. All parties demonstrate verbal understanding and agreement with our assessment and plan at this time. EKG 22: 40 Rate 87, intervals normal, sinus rhythm, no significant ST elevations or depressions, no T wave inversions except for in V1 and flattening in V2, small Q waves in lead III. No other significant abnormalities. No evidence of STEMI FINDINGS: Lungs: Vague airspace opacity within the right lower lobe may represent developing pneumonia. Emphysematous changes. Pleural space: No pneumothorax. No sizable pleural effusion. Heart/Mediastinum: No cardiomegaly. Bones/joints: Unremarkable for patient's age. IMPRESSION: Vague airspace opacity within the right lower lobe may represent developing pneumonia. Thank you for allowing us to participate in the care of your patient. Dictated and Authenticated by: Moe Guajardo MD 10/21/2018 10:32 PM Eastern Time ([place] & [place]) FINDINGS: Brain: Age-related involutional changes and chronic microvascular ischemic disease. No evidence for acute transcortical infarct. No mass effect or midline shift. No extra-axial collection. No acute intracranial hemorrhage. Basal cisterns are patent. Ventricles: Normal. No ventriculomegaly. Bones/joints: Unremarkable. No acute fracture. Sinuses: Visualized sinuses are unremarkable. No fluid levels. Mastoid air cells: Visualized mastoid air cells are well aerated. No mastoid effusion. Orbits: Bilateral cataract surgery. Soft tissues: Unremarkable. IMPRESSION: No hydrocephalus, acute intracranial hemorrhage, or mass effect. Thank you for allowing us to participate in the care of your patient. Dictated and Authenticated by: Moe Guajardo MD 10/21/2018 10:44 PM Eastern Time ([place] HPI <Jonas Krishna MD - Last Filed: 10/24/18 03:31> General Mode of arrival: ambulatory . Date/Time Provider Initiated Documentation: 10/21/18 21:01 . Limitations to Documentation: no limitations . Information obtained by: patient . HPI Narrative: 73yo f with multiple medical problems including history of COPD on chronic intermittent home O2, coronary artery disease is here tonight at the prompting of her daughters with chief complaint of headache. Patient notes she has had a moderate to severe persistent headache over the past 1 week. Pain does seem worse when she bends over. Headache was not sudden onset. Patient denies associated neck pain. Daughters are more concerned with patient's decreased oral intake. They state that she has been drinking as much as usual and has not been urinating. Patient agrees with this and notes that she has had decreased urination. She denies dysuria. No abdominal pain. Patient has no chest pain. She does note that she has had chronic shortness of breath. She does state that she may have an exacerbation of her COPD and would likely benefit from some prednisone which she is requesting. She does notes that she is had a cough productive of brown sputum at times over the past few weeks. Related Data Home Medications Medication Instructions Recorded Confirmed Spiriva with HandiHaler 1 inh INHALATION DAILY 05/13/13 10/21/18 aspirin [Aspir-81] 1 tab PO DAILY 05/13/13 10/21/18 losartan 1 tab PO DAILY 05/13/13 10/21/18 metoprolol tartrate 1 tab PO BID 05/13/13 10/21/18 pravastatin 1 tab PO HS 05/13/13 10/21/18 albuterol sulfate 3 ml UPD Q2H PRN PRN #90 vial 05/16/13 10/21/18 buspirone 15 mg PO TID 07/23/14 10/21/18 bupropion HCl [Wellbutrin] 150 mg PO BID 06/14/15 10/21/18 clonazepam 0.5 - 1 tab PO HS PRN 06/14/15 10/21/18 amlodipine 5 mg PO DAILY #30 tab-cap 08/04/16 10/21/18 Symbicort 2 puff INHALATION BID #1 hfa.aer.ad 09/09/16 10/21/18 loratadine 1 tab PO DAILY 07/31/17 10/21/18 meloxicam 7.5 mg PO BID #60 tab 10/11/17 10/21/18 albuterol sulfate [Ventolin HFA] 2 puff INHALATION .Q4-6 PRN 02/15/18 10/21/18 cholecalciferol (vitamin D3) 1,000 unit PO DAILY 02/15/18 10/21/18 [Vitamin D3] docusate sodium 100 mg PO DAILY 02/15/18 10/21/18 levothyroxine 25 mcg PO DAILY 02/15/18 10/21/18 montelukast [Singulair] 10 mg PO DAILY 02/15/18 10/21/18 nitroglycerin [Nitrostat] 0.4 mg SUBLINGUAL ONCE 02/15/18 10/21/18 Previous Rx's Medication Instructions Recorded albuterol sulfate 3 ml UPD Q2H PRN PRN #90 vial 05/16/13 Symbicort 2 puff INHALATION BID #1 hfa.aer.ad 09/09/16 meloxicam 7.5 mg PO BID #60 tab 10/11/17 Allergies Allergy/AdvReac Type Severity Reaction Status Date / Time amoxicillin Allergy Intermediate Hives Unverified 10/21/18 20:54 clarithromycin Allergy Intermediate Hives Verified 10/21/18 20:54 Penicillins Allergy Intermediate Hives Unverified 10/21/18 20:54 General Stated Complaint: RespSymp MAURICIO: 3 Review of Systems <Jonas Krishna MD - Last Filed: 10/24/18 03:31> Review of Systems All systems reviewed & are unremarkable except as noted in HPI and below Constitutional Denies fever(s) Cardiovascular Denies syncope and Reports dyspnea Respiratory Reports cough, Denies hemoptysis, Reports dyspnea and Denies wheezing Gastrointestinal Denies abdominal pain Genitourinary Reports as per HPI Musculoskeletal Denies numbness Neurologic Reports as per HPI, Denies syncope, Denies focal weakness, Denies numbness and Denies sensory deficit Psychiatric Reports depression Allergic/Immunologic Denies wheezing PFSH <Jonas Krishna MD - Last Filed: 10/24/18 03:31> Medical History (Updated 10/23/18 @ 13:35 by Steff Banda NP) CAD (coronary artery disease) (Chronic) COPD (chronic obstructive pulmonary disease) (Chronic) Cortical cataract of left eye (Resolved) Cortical cataract of right eye (Resolved) Hyperlipidemia (Chronic) Hypertension (Chronic) Nuclear sclerotic cataract of left eye (Resolved) Nuclear sclerotic cataract of right eye (Resolved) Posterior subcapsular age-related cataract of left eye (Resolved) Posterior subcapsular age-related cataract, right eye (Resolved) Smoker (Chronic) Surgical History Status post cataract extraction and insertion of intraocular lens of left eye (Chronic 02/20/18) Status post cataract extraction and insertion of intraocular lens of right eye (Chronic 03/06/18) Social History Smoking/Tobacco Use Status: Former Tobacco Use Alcohol Intake: never Drug use: Never Do you feel safe at home: Yes Do you feel safe in your relationship?: Yes Exam <Jonas Krishna MD - Last Filed: 10/24/18 03:31> Const General: cooperative and no acute distress HENMT Head: normocephalic and atraumatic Mouth: moist mucous membranes Eyes Conjunctivae: normal conjunctivae Sclera: normal sclerae EOM: EOM intact bilaterally Neck Neck: full ROM, trachea midline, supple and no JVD Resp Effort & Inspection: able to speak in complete sentences, no respiratory distress and tachypneic Auscultation: clear to auscultation bilaterally, no rales, no rhonchi and no wheezes Other: Patient on nasal cannula oxygen Cardio Jugular venous pressure: no JVD Rate: regular rate and not tachycardic Rhythm: regular rhythm GI Palpation: soft, not firm, no guarding, no masses, not rigid and nontender Skin General skin exam: no rashes or lesions noted Neuro General: alert, awake, oriented x3 and tone normal Extrem General: no calf tenderness and no edema Psych Appearance: grossly normal Course <Jonas Krishna MD - Last Filed: 10/24/18 03:31> Vital Signs Temperature 37.1 C 07/20/19 20:50 Pulse 92 H 10/21/18 20:50 Respiratory Rate 24 10/21/18 20:50 Blood Pressure 180/62 H 10/21/18 20:50 Pulse Oximetry 94 L 10/21/18 20:50 Temperature 37.1 C 10/21/18 20:50 Temperature Source Skin 10/21/18 20:50 Pulse 92 H 10/21/18 20:50 Respiratory Rate 24 10/21/18 20:50 Respiratory Effort Labored 10/21/18 21:02 Respiratory Depth Retractive 10/21/18 21:02 Blood Pressure 180/62 H 10/21/18 20:50 Blood Pressure Position Sitting 10/21/18 20:50 Pulse Oximetry 94 L 10/21/18 20:50 Oxygen Delivery Method Nasal Cannula 10/21/18 20:50 Oxygen Flow Rate 2 10/21/18 20:50 Pain Level 0 10/21/18 20:50 Sign Out <Jonas Krishna MD - Last Filed: 10/24/18 03:31> Sign Out Data: Sign Out Comment: Follow-up labs and radiology interpretation of CT head and cxr. Reassess patient after prednisone and Tylenol. Last updated by Jonas Krishna MD at 10/21/18 22:17
[2018-10-21] MEDS: ALPRAZolam 0.5 MG TAB PO (21:36)
[2018-10-21 21:37] LABS: Abs Immature Grans 0.08 k/cumm (0.0-0.09); Absolute Eosinophil Count 0.11 k/cumm (0.0-0.7); Absolute Lymphocyte Count 1.32 k/cumm (1.2-3.4); Absolute Monocyte Count 1.27 k/cumm (0.11-0.7); Basophils % 0.2; Eosinophils % 0.9; HCT 33.8 % (36.0-46.0); HGB 11.4 g/dL (12.0-15.5); Immature Grans % 0.6; Lymphocytes % 10.6; Mean Corp. HGB Concentration 33.7 g/dL (32.0-36.0); Mean Corpuscular Hemoglobin 29.5 pg (27.0-33.0); Mean Corpuscular Volume 87.3 fL (80-95); Monocytes % 10.2; Neutrophils % 77.5; Platelet Count 296 x1000/uL (130-400); RBC 3.87 m/cumm (4.00-5.20); RBC Distribution Width 13.5 % (11.7-14.6); White Blood Cell Count 12.43 k/cumm (4.4-10.8)
[2018-10-21 21:55] LABS: Magnesium 1.8 mg/dL (1.8-2.4); NT-proBNP 2826 pg/mL
[2018-10-21 21:57] LABS: Absolute Basophil Count 0.02 k/cumm (0.0-0.2); Absolute Neutrophil Count 9.63 k/cumm (1.2-6.7)
[2018-10-21 21:58] LABS: ALT 74 U/L (12-78); AST 69 U/L (15-37); Albumin 2.5 g/dL (3.4-5.0); Alkaline Phosphatase 207 U/L (46-116); Anion Gap 10.3 mmol/L (3-11); BUN 15 mg/dL (7-18); Bilirubin, Total 0.4 mg/dL (0.2-1.0); CO2 23.7 mmol/L (21.0-32.0); CREATININE 1.08 mg/dL (0.55-1.02); Calcium 9.4 mg/dL (8.5-10.1); Chloride 94 mmol/L (98-107); Estimated GFR 49.73 (mL/min/1.73m2); Glucose 110 mg/dL (70-100); Potassium 3.9 mmol/L (3.5-5.1); Sodium 128 mmol/L (136-145); Total Protein 6.9 g/dL (6.4-8.2)
[2018-10-21 21:59] LABS: Troponin I < 0.05 ng/mL (0.00-0.06)
[2018-10-21] MEDS: Acetaminophen 325 MG TAB 650 MG PO (22:02)
--- NOTE | 2018-10-21 22:13 | DI.RAD_ITS ---
SYMPTOM/DIAGNOSIS: COUGH, RIGHT LOWER CRACKLES CHEST X-RAY: Frontal and lateral views. Comparison 09/19/18 Heart size and pulmonary vasculature are stable and within normal limits. There is a question of increased lung markings in the right lung base and a developing pneumonia cannot be excluded. The left lung appears clear. The lungs are hyperinflated suggesting underlying COPD. Age related degenerative changes are seen in the spine. IMPRESSION: Question of a developing right basilar infiltrate. This may represent pneumonia. Please correlate clinically
--- NOTE | 2018-10-21 22:32 | DI.VRAD_ITS ---
EXAM: XR Chest, 2 Views EXAM DATE/TIME: 10/21/2018 10:14 PM CLINICAL HISTORY: 73 years old, female; Patient HX: Cough, right lower crackles TECHNIQUE: Imaging protocol: XR of the chest, 2 views. COMPARISON: CR XR CHEST 2V PA LATERAL 09/19/2018 10:11 AM FINDINGS: Lungs: Vague airspace opacity within the right lower lobe may represent developing pneumonia. Emphysematous changes. Pleural space: No pneumothorax. No sizable pleural effusion. Heart/Mediastinum: No cardiomegaly. Bones/joints: Unremarkable for patient's age. IMPRESSION: Vague airspace opacity within the right lower lobe may represent developing pneumonia. Dictated and Authenticated by: Moe Guajardo MD. Ordering:RICARDO Martin MD
--- NOTE | 2018-10-21 22:44 | DI.VRAD_ITS ---
EXAM: CT Head Without Contrast EXAM DATE/TIME: 10/21/2018 9:16 PM CLINICAL HISTORY: 73 years old, female; Pain; Patient HX: Headache; Per PT: Headaches for 1 wk, l/r temples and across forehead TECHNIQUE: Imaging protocol: Computed tomography images of the head without contrast. Coronal and sagittal reformatted images were created and reviewed. COMPARISON: CT HEAD WITHOUT CONTRAST 06/14/2015 10:13 PM FINDINGS: Brain: Age-related involutional changes and chronic microvascular ischemic disease. No evidence for acute transcortical infarct. No mass effect or midline shift. No extra-axial collection. No acute intracranial hemorrhage. Basal cisterns are patent. Ventricles: Normal. No ventriculomegaly. Bones/joints: Unremarkable. No acute fracture. Sinuses: Visualized sinuses are unremarkable. No fluid levels. Mastoid air cells: Visualized mastoid air cells are well aerated. No mastoid effusion. Orbits: Bilateral cataract surgery. Soft tissues: Unremarkable. IMPRESSION: No hydrocephalus, acute intracranial hemorrhage, or mass effect. Dictated and Authenticated by: Moe Guajardo MD. Ordering:PETE Mcdaniel MD
[2018-10-21] MEDS: methylPREDNISolone SUCC 125 MG VIAL IVP (22:53)
[2018-10-21] MEDS: levoFLOXacin 750 MG/150 ML BAG 100 MG IVPB (22:54)
--- NOTE | 2018-10-21 23:05 | NUR.NOTE ---
Nursing Note: Pt ambulated to bathroom with steady gait, urine specimen obtained. Pt ambulated back to bed.
[2018-10-21] MEDS: Albuterol/Ipratropium 3 ML UPD VIAL UPD (23:13)
[2018-10-21 23:23] LABS: Bilirubin Negative (Negative); Blood Small (Negative); Clarity Clear (Clear); Glucose Negative (Negative); Ketones Negative (Negative); Leukocyte Esterase Large (Negative); Nitrite Positive (Negative); Specific Gravity 1.015 (1.005-1.025)
[2018-10-21 23:30] LABS: Bacteria Many HPF (Negative); Epithelial Cells Moderate HPF (Negative); RBC 0-2 (0-2)
[2018-10-21 23:31] LABS: C & S Indicated? No/Sq. Contamination; Casts 5-10 Hyaline LPF (Negative); Crystals Negative HPF (Negative); Mucus Negative (Negative)
[2018-10-22] VITALS (60 sets, daily range): BP systolic 121–157; BP diastolic 39–89; PULSE 69–93; RESP 12–33; TEMP 36.1–36.9; O2SAT 92–97
--- NOTE | 2018-10-22 00:04 | HPE_ITS ---
Date of service: 10/22/18 Time of Service: 00:04 Assessment and Plan (1) Community acquired pneumonia of right lower lobe of lung: Current visit: Yes Status: Acute continue corticosteroids and antibiotics. However, given her CHF, I have put her on oral Levaquin rather than iv. Also her corticosteroids can be changed to prednisone. She will continue her inhalers/aerosols on a prn basis (2) COPD (chronic obstructive pulmonary disease): Current visit: Yes Status: Chronic as above (3) CHF (congestive heart failure), NYHA class II: Current visit: Yes Status: Acute continue to cycle her troponin levels however, this does not appear to be d/t ACS but is probably CHF brought on by her COPD exacerbation. Nevertheless she ought to have echo checked on Tuesday to evaluate her LV function and serial troponins to rule an ACS. I gave her one time dose of lasix on admission however she may need more depending on her U.O. History of Present Illness Chief Complaint: short of breath, dizzy, chills Narrative: 73-year-old female with a history of COPD on home oxygen 2 L/min per nasal cannula, coronary artery disease with previous NC and single-vessel coronary stent approximately 23 years ago, hypothyroidism, essential hypertension, hyperlipidemia who presents emergency department by her daughter who insisted she come to the hospital for evaluation of decreased appetite and poor oral intake over the last couple weeks along with increasing dyspnea and a cough productive of brownish-greenish mucus associated with some chills and dizziness but no syncope or chest pain or pressure. She said she had similar symptoms approximately 2 months ago and was ill for about 3 weeks treated with a tapered dose of prednisone and an oral Z-Rick. She transiently improved for a few days but then got worse once she completed the prednisone. Chills has been described as rigors. She had poor oral appetite along with nausea but no vomiting and no abdominal pain. She denies any dysuria. Evaluation emergency department by Dr. Jonas Krishna and Dr. Silva included a diagnostic work-up involved chest x-ray which demonstrated vague airspace opacity in the right lower lobe possibly representing pneumonia. Laboratory studies were remarkable for a mild leukocytosis of 12,400 chemistry profile was remarkable for hyponatremia with serum sodium 128. With a normal BUN of 15 and a borderline creatinine 1.08. AST was mildly elevated 69 alkaline phosphatase is mildly elevated 207. Troponin was negative at less than 0.05. proBNP was elevated 2826 which is up from her baseline of 765 in July of this year. EKG demonstrated normal sinus rhythm rate 87 bpm no acute ischemic ST or T wave changes. Treatment in the emergency room included IV Solu-Medrol 125 mg along with an DuoNeb updraft and Levaquin 750 mg IV. Patient is now admitted to the hospital for treatment of community acquired pneumonia as well as COPD exacerbation however because of the rising proBNP there is some suspicion for acute congestive heart failure. I did a bedside [id number] ultrasound of her lungs which showed scattered B-lines and both lung nina suggestive of CHF. Patient was given one-time dose of Lasix 20 mg IV. Patient will be admitted in the morning to the medical/surgical floor for further treatment of her COPD and work-up of CHF as well as treatment of community acquired pneumonia. She is currently on hold in the emergency room pending adequate nursing staffing for the medical/surgical floor. Review of Systems Review of Systems All systems reviewed & are unremarkable except as noted in HPI and below PFSH Medical History Cortical cataract of left eye (Resolved) Cortical cataract of right eye (Resolved) Nuclear sclerotic cataract of left eye (Resolved) Nuclear sclerotic cataract of right eye (Resolved) Posterior subcapsular age-related cataract of left eye (Resolved) Posterior subcapsular age-related cataract, right eye (Resolved) Surgical History Status post cataract extraction and insertion of intraocular lens of left eye (Chronic 02/20/18) Status post cataract extraction and insertion of intraocular lens of right eye (Chronic 03/06/18) Social History Smoking/Tobacco Use Status: Former Tobacco Use Alcohol Intake: never Drug use: Never Do you feel safe at home: Yes Do you feel safe in your relationship?: Yes Meds Home Medications Medication Instructions Recorded Confirmed Type Spiriva with HandiHaler 1 inh INHALATION DAILY 05/13/13 10/21/18 History aspirin [Aspir-81] 1 tab PO DAILY 05/13/13 10/21/18 History losartan 1 tab PO DAILY 05/13/13 10/21/18 History metoprolol tartrate 1 tab PO BID 05/13/13 10/21/18 History pravastatin 1 tab PO HS 05/13/13 10/21/18 History albuterol sulfate 3 ml UPD Q2H PRN PRN #90 vial 05/16/13 10/21/18 Rx buspirone 15 mg PO TID 07/23/14 10/21/18 History bupropion HCl [Wellbutrin] 150 mg PO BID 06/14/15 10/21/18 History clonazepam 0.5 - 1 tab PO HS PRN 06/14/15 10/21/18 History amlodipine 5 mg PO DAILY #30 tab-cap 08/04/16 10/21/18 History Symbicort 2 puff INHALATION BID #1 hfa.aer.[email or web address] 09/09/16 10/21/18 Rx loratadine 1 tab PO DAILY 07/31/17 10/21/18 History meloxicam 7.5 mg PO BID #60 tab 10/11/17 10/21/18 Rx albuterol sulfate [Ventolin HFA] 2 puff INHALATION .Q4-6 PRN 02/15/18 10/21/18 History cholecalciferol (vitamin D3) 1,000 unit PO DAILY 02/15/18 10/21/18 History [Vitamin D3] docusate sodium 100 mg PO DAILY 02/15/18 10/21/18 History levothyroxine 25 mcg PO DAILY 02/15/18 10/21/18 History montelukast [Singulair] 10 mg PO DAILY 02/15/18 10/21/18 History nitroglycerin [Nitrostat] 0.4 mg SUBLINGUAL ONCE 02/15/18 10/21/18 History Allergies Allergy/AdvReac Type Severity Reaction Status Date / Time amoxicillin Allergy Intermediate Hives Unverified 10/21/18 20:54 clarithromycin Allergy Intermediate Hives Verified 10/21/18 20:54 Penicillins Allergy Intermediate Hives Unverified 10/21/18 20:54 Exam Const General: cooperative, no acute distress, well developed and well groomed Nutritional Appearance: obese Orientation: alert, awake and oriented x3 HENMT Head: normal to inspection, no palpable skull fracture, normocephalic and atraumatic Ears: external ears normal and TM's normal bilaterally General nose exam: external nose normal, nares normal and no nasal discharge Face and sinus: normal facial exam, sinuses nontender and face symmetric Mouth: oral mucosae normal, lip normal, tongue normal, oropharynx normal and moist mucous membranes Throat: posterior oropharynx normal and uvula midline Eyes General: appearance normal, both eyes and all related structures Alignment and Position: alignment normal Periorbital: periorbital findings normal Eyelids: eyelids normal Conjunctivae: conjunctivae normal Sclera: sclerae normal Cornea: corneas normal Pupils: PERRL, normal by confrontation and accommodation normal EOM: EOM intact bilaterally Direct ophthalmoscopy: normal light reflex Neck Neck: normal visual inspection, full ROM, no lymphadenopathy, trachea midline, supple and no JVD Thyroid: thyroid normal Carotids: normal carotid upstroke Lymphatic: no lymphadenopathy noted Chest Chest: normal inspection of the chest and normal palpation of entire chest wall Resp Effort & Inspection: normal respiratory effort and able to speak in complete sentences Auscultation: wheezes scattered wheezes Cardio Jugular venous pressure: no JVD Palpation: normal PMI Rate: regular rate Rhythm: regular rhythm Heart Sounds: S1 normal, S2 normal, normal, physiologic split S2, no gallops and no murmurs Pulses: normal peripheral pulses GI Inspection: normal to inspection Palpation: soft, no hepatosplenomegaly and nontender Percussion: normal to percussion Auscultation: normal bowel sounds General: No CVA tenderness Back/Spine/Pelvis Back: no CVA tenderness Cervical Spine: normal cervical lordosis and cervical ROM normal Thoracic/Lumbar Spine: thoracic and lumbar spine normal to inspection and thoraco-lumbar ROM normal Skin General skin exam: no rashes or lesions noted, elasticity normal and turgor normal Lesions: no lesions Rashes: no rashes Trauma: no lacerations or abrasions Hair: normal Nails: normal Neuro General: alert, awake, oriented x3, moves all extremities and no focal motor deficits Cranial Nerves: CN's II-XI intact bilaterally, PERRL, accommodation normal, EOM intact bilaterally, no nystagmus, facial strength normal, tongue midline, gag reflex normal, hearing normal, able to rotate head bilaterally, able to elevate shoulders bilaterally and Symmetric palate elevation Cognition: normal cognition Speech: speech normal Gait: normal gait Motor: muscle tone normal throughout, strength 5/5 throughout, no pronator drift, no movement abnormalities noted and no fasciculations Sensory Exam: no sensory deficits noted Extrem General: normal to inspection, full ROM, normal capillary refill, no joint e nlargement, no calf tenderness, no calf tenderness bilaterally and pedal edema bilaterally (trace) Psych Appearance: grossly normal and well kempt Mental Status: mental status grossly normal Speech and Movement: speech and movement normal Mood: congruent mood Affect: normal affect Attitude: cooperative Thought Process: normal Thought Content: normal Insight: insight good Judgment: judgment good Results Labs : 10/21/18 21:22 10/21/18 21:22 Laboratory Results - last 24 hr 10/21/18 10/21/18 10/21/18 21:22 21:22 21:22 WBC 12.43 H RBC 3.87 L Hgb 11.4 L Hct 33.8 L MCV 87.3 MCH 29.5 MCHC 33.7 RDW 13.5 Plt Count 296 MPV 10.0 Immature Gran % 0.6 Neutrophils % 77.5 Lymphocytes % 10.6 Monocytes % 10.2 Eosinophils % 0.9 Basophils % 0.2 Absolute Neutrophils 9.63 H Absolute Lymphocytes 1.32 Absolute Monocytes 1.27 H Absolute Eosinophils 0.11 Absolute Basophils 0.02 Sodium 128 L Potassium 3.9 Chloride 94 L Carbon Dioxide 23.7 Anion Gap 10.3 BUN 15 Creatinine 1.08 H Estimated GFR/1.73 m2 49.73 Glucose 110 H Calcium 9.4 Magnesium 1.8 Total Bilirubin 0.4 AST 69 H ALT 74 Alkaline Phosphatase 207 H Troponin I < 0.05 NT-Pro-B Natriuret Pep 2826 H Total Protein 6.9 Albumin 2.5 L Urine Color Urine Clarity Urine pH Ur Specific [place] Urine Protein Urine Ketones Urine Blood Urine Nitrite Urine Bilirubin Urine Urobilinogen Ur Leukocyte Esterase Urine RBC Urine WBC Ur Epithelial Cells Urine Crystals Urine Bacteria Urine Casts Urine Mucus Ur Culture Indicated? Urine Glucose 10/21/18 23:02 WBC RBC Hgb Hct MCV MCH MCHC RDW Plt Count MPV Immature Gran % Neutrophils % Lymphocytes % Monocytes % Eosinophils % Basophils % Absolute Neutrophils Absolute Lymphocytes Absolute Monocytes Absolute Eosinophils Absolute Basophils Sodium Potassium Chloride Carbon Dioxide Anion Gap BUN Creatinine Estimated GFR/1.73 m2 Glucose Calcium Magnesium Total Bilirubin AST ALT Alkaline Phosphatase Troponin I NT-Pro-B Natriuret Pep Total Protein Albumin Urine Color Yellow Urine Clarity Clear Urine pH 6.0 Ur Specific [place] 1.015 Urine Protein 100 H Urine Ketones Negative Urine Blood Small H Urine Nitrite Positive H Urine Bilirubin Negative Urine Urobilinogen 1.0 H Ur Leukocyte Esterase Large H Urine RBC 0-2 Urine WBC 10-20 Ur Epithelial Cells Moderate Urine Crystals Negative Urine Bacteria Many Urine Casts 5-10 hyaline Urine Mucus Negative Ur Culture Indicated? No/sq. contamination Urine Glucose Negative Last Vital Signs Temp 37.1 C 10/21/18 20:50 Pulse 85 10/21/18 23:43 Resp 20 10/21/18 23:43 BP 115/69 10/21/18 22:28 Pulse Ox 96 10/21/18 23:43
--- NOTE | 2018-10-22 00:09 | NUR.NOTE ---
Nursing Note: Pt resting quietly in bed lying on her left side, lights turned out. Pt offered another blanket but declined at this time. IV abx continue to infuse.
--- NOTE | 2018-10-22 00:30 | NUR.NOTE ---
Nursing Note: Admitting MD at bedside to evaluate pt.
[2018-10-22] MEDS: Furosemide 20 MG/2 ML VIAL IVP (01:07)
[2018-10-22] MEDS: Enoxaparin 40 MG/0.4 ML SYR SC ×2 (01:08→21:52)
--- NOTE | 2018-10-22 02:00 | NUR.NOTE ---
Nursing Note: Pt currently asleep, lying on her back.
--- NOTE | 2018-10-22 03:12 | NUR.NOTE ---
Nursing Note: Pt awake, lying quietly in bed. Pt with no voiced complaints or requests at this time.
--- NOTE | 2018-10-22 04:17 | NUR.NOTE ---
Nursing Note: Pt up to bedside commode to void then back to bed. No voiced complaints at this time. Pt offered a warm blanket but declined at this time.
--- NOTE | 2018-10-22 05:14 | NUR.NOTE ---
Nursing Note: Pt resting quietly in bed at this time.
[2018-10-22] MEDS: Acetaminophen 325 MG TAB PO ×2 (05:20→17:33)
--- NOTE | 2018-10-22 06:12 | NUR.NOTE ---
Nursing Note: Pt sleeping, respirations even and unlabored.
[2018-10-22 06:48] LABS: Abs Immature Grans 0.09 k/cumm (0.0-0.09); Absolute Basophil Count 0.01 k/cumm (0.0-0.2); Absolute Lymphocyte Count 0.62 k/cumm (1.2-3.4); Absolute Monocyte Count 0.31 k/cumm (0.11-0.7); Basophils % 0.1; HCT 32.8 % (36.0-46.0); Immature Grans % 0.8; Lymphocytes % 5.6; Mean Corp. HGB Concentration 33.5 g/dL (32.0-36.0); Mean Corpuscular Hemoglobin 29.3 pg (27.0-33.0); Mean Corpuscular Volume 87.2 fL (80-95); Mean Platelet Volume 9.7 fL (8.0-11.0); Monocytes % 2.8; Neutrophils % 90.7; Platelet Count 271 x1000/uL (130-400); RBC 3.76 m/cumm (4.00-5.20); RBC Distribution Width 13.5 % (11.7-14.6); White Blood Cell Count 11.03 k/cumm (4.4-10.8)
[2018-10-22 07:20] LABS: Anion Gap 12.3 mmol/L (3-11); BUN 14 mg/dL (7-18); CO2 23.7 mmol/L (21.0-32.0); CREATININE 1.06 mg/dL (0.55-1.02); Calcium 8.7 mg/dL (8.5-10.1); Chloride 92 mmol/L (98-107); Estimated GFR 50.81 (mL/min/1.73m2); Glucose 184 mg/dL (70-100); Potassium 3.7 mmol/L (3.5-5.1); Sodium 128 mmol/L (136-145); TSH (W/Ref FT4) 0.59 uIU/mL (0.358-3.74)
[2018-10-22 07:22] LABS: Troponin I < 0.05 ng/mL (0.00-0.06)
--- NOTE | 2018-10-22 07:51 | NUR.NOTE ---
Nursing Note: pt resting in bed, no signs of distress. facial expression and body language relaxed. VSS. pt updated on plan of care. Breakfast tray ordered.
[2018-10-22] MEDS: busPIRone 15 MG TAB PO ×3 (10:19→20:09)
[2018-10-22] MEDS: buPROPion-CR 150 MG TABCR PO ×2 (10:20→20:09)
[2018-10-22] MEDS: Montelukast 10 MG TAB PO (10:20)
[2018-10-22] MEDS: Cholecalciferol (Vitamin D3) 1,000 UNIT TAB 1000 UNITS PO (10:20)
[2018-10-22] MEDS: Aspirin E.C. 81 MG TABEC PO (10:21)
[2018-10-22] MEDS: Levothyroxine 25 MCG TAB PO (10:21)
[2018-10-22] MEDS: Loratidine 10 MG TAB PO (10:21)
[2018-10-22] MEDS: Docusate Sodium 100 MG CAP PO (10:21)
[2018-10-22] MEDS: amLODIPine 5 MG TAB PO (10:22)
[2018-10-22] MEDS: predniSONE 20 MG TAB 60 MG PO (10:22)
[2018-10-22] MEDS: Losartan 50 MG TAB PO (10:23)
[2018-10-22] MEDS: Metoprolol 50 MG TAB 100 MG PO ×2 (10:30→20:09)
[2018-10-22] MEDS: Tiotropium Bromide-Respimat 10 PUFF INH IH (11:13)
[2018-10-22] MEDS: Budesonide/Formoterol 160/4.5 6 GM 60 PUFF INH IH ×2 (11:16→20:07)
--- NOTE | 2018-10-22 14:46 | PHARADMIT ---
Admission Pharmacy Clinical Review community acquired pneumonia, hyponatremia, hypoxemia Code Status Full Code Current Weight Wgt- 76.2 kg Renally Cleared and Narrow Therapeutic Index Meds CrCl~35.6 mL/min Meds-OK QTc Value / Action Taken qtC-426 (NA) BP Control, Fever BP-150/89 Tmax-37.1C Electrolytes reviewed Na- 128 K+3.7 Mag-1.8 DVT Prophylaxis Lovenox, ASA-ec Opiate Usage / Scheduled Bowel Regimen Ordered No Yes Plt/SCr for Heparin / Enoxaparin Plts-271 SCr-1.06 INR for Warfarin na H/H stable, WBC/Bands H&H- 11.0/32.8 WBC- 11.03 Antibiotic appropriateness Levaquin-PO Cultures and Sensitivities none Surgical ABX d/c within 24 hr na DM control / Insulin Dosing BG-184 Heart Failure (Check EF%) (MATHEW's, B-Block, Diuretics) Norvasc, NTG, Lopressor, [place]n IV to PO Switch Yes Home Meds Reviewed Yes Home Meds Not Ordered Meloxicam, Comments
[2018-10-22] MEDS: Normal Saline Flush 10 ML SYR IVP (20:10)
[2018-10-22] MEDS: Pravastatin 40 MG TAB PO (21:52)
[2018-10-22] MEDS: levoFLOXacin 500 MG, levoFLOXacin 250 MG 750 MG PO (21:52)
[2018-10-23] VITALS (8 sets, daily range): BP systolic 119–150; BP diastolic 72–84; PULSE 72–82; RESP 16–18; TEMP 36.1–36.9; O2SAT 91–98
--- NOTE | 2018-10-23 07:35 | MERGE_ITS ---
*[facility]* * Cardiology* [address] [place] [address] Date of study: 10/23/2018 Transthoracic Echocardiography M-mode, complete 2D, complete spectral Doppler, and color Doppler *STUDY CONCLUSIONS* Summary: 1. Left ventricle: The cavity size was normal. Systolic function was hyperdynamic. The estimated ejection fraction was 65-70%. Diastolic parameters were normal. There was no evidence of elevated ventricular filling pressure by Doppler parameters. 2. Right ventricle: The cavity size was normal. Wall thickness was normal. Systolic function was normal. 3. Atrial septum: No defect or patent foramen ovale was identified. 4. Pulmonary arteries: Systolic pressure could not be accurately estimated. 5. Inferior vena cava: The vessel was normal in size. The respirophasic diameter changes were in the normal range (greater than or equal to 50%), consistent with normal central venous pressure. *PATIENT PRESENTATION* Height: 154.9cm (61in ) S/D Pressure: 143 / 77 Weight: 76.2kg (167.6lb ) BSA: 1.84m^2 Test start time: 07:30 AM. Test stop time: 08:25 AM. PERFORMING Unknown PERFORMING [facility] CONSULTING Nasir Dorsey ORDERING Nasir Dorsey REFERRING Nasir Dorsey FLIGHT DECK OFFICERDivya Grimes *PROCEDURE DATA* Procedure information: This study was interpreted by [facility]. Pertinent images and digital data are archived for permanent storage and are available for subsequent review. No prior study was available for comparison. Study status: Routine. Transthoracic echocardiography. M-mode, complete 2D, complete spectral Doppler, and color Doppler. A Transthoracic Echocardiogram was performed. Scanning was performed from the parasternal, apical, subcostal, and suprasternal notch acoustic windows. Images were obtained using an [employer] SC 2000 cardiac ultrasound machine. Image quality was good. Study completion: The patient tolerated the procedure well. History: PMH: CHF. *CARDIAC ANATOMY* Left ventricle: The cavity size was normal. Systolic function was hyperdynamic. The estimated ejection fraction was 65-70%. The tissue Doppler parameters were normal. Diastolic parameters were normal. There was no evidence of elevated ventricular filling pressure by Doppler parameters. Aortic valve: Trileaflet. Doppler: There was no stenosis. There was no significant regurgitation. VTI ratio of LVOT to aortic valve: 0.79. Valve area (VTI): 2.3cm^2. Indexed valve area (VTI): 1.3cm^2/m^2. Peak velocity ratio of LVOT to aortic valve: 0.7. Valve area (Vmax): 2cm^2. Indexed valve area (Vmax): 1.1cm^2/m^2. Mean velocity ratio of LVOT to aortic valve: 0.66. Valve area (Vmean): 1.9cm^2. Indexed valve area (Vmean): 1.1cm^2/m^2. Mean gradient (S): 4.3mm Hg. Peak gradient (S): 8.5mm Hg. Aorta: Aortic root: The aortic root was normal in size. Ascending aorta: The ascending aorta was at upper normal limits. Mitral valve: Doppler: There was no evidence for stenosis. There was trivial regurgitation. Valve area by pressure half-time: 3.2cm^2. Indexed valve area by pressure half-time: 1.7cm^2/m^2. Peak gradient (D): 3.2mm Hg. Left atrium: The atrium was normal in size. Atrial septum: No defect or patent foramen ovale was identified. Right ventricle: The cavity size was normal. Wall thickness was normal. Systolic function was normal. Pulmonic valve: Doppler: There was no evidence for stenosis. There was no significant regurgitation. Peak gradient (S): 2.2mm Hg. Tricuspid valve: Doppler: There was mild regurgitation. Pulmonary artery: Poorly visualized. Systolic pressure could not be accurately estimated. Right atrium: The atrium was normal in size. Pericardium: There was no pericardial effusion. Systemic veins: Inferior vena cava: The vessel was normal in size. The respirophasic diameter changes were in the normal range (greater than or equal to 50%), consistent with normal central venous pressure. Measurements Left ventricle Value Reference LV ID, ED, PLAX 4.3 cm 3.5 - 6.0 LV ID, ES, PLAX 2.5 cm 2.1 - 4.0 LV PW thickness, ED, PLAX 1.0 cm LV end-diastolic volume, 1-p A2C 81 ml LV ejection fraction, 1-p A2C 67 % LV end-diastolic volume, 1-p A4C 74 ml LV ejection fraction, 1-p A4C 68 % LV e', lateral 0.088 m/sec LV E/e', lateral 10 LV e', medial 0.103 m/sec LV E/e', medial 9 LV e', average 0.095 m/sec LV E/e', average 9 Ventricular septum Value Reference IVS thickness, ED, PLAX 1.0 cm LVOT Value Reference LVOT ID, A-P 1.9 cm LVOT area 2.9 cm^2 LVOT peak velocity, S 1.01 m/sec LVOT mean velocity, S 0.64 m/sec LVOT VTI, S 22.1 cm LVOT peak gradient, S 4.1 mm Hg LVOT mean gradient, S 1.9 mm Hg Stroke volume (SV), LVOT DP 65 ml Stroke index (SV/bsa), LVOT DP 35 ml/m^2 Aortic valve Value Reference Aortic valve peak velocity, S 1.5 m/sec Aortic valve mean velocity, S 1 m/sec Aortic valve VTI, S 28.0 cm Aortic mean gradient, S 4.3 mm Hg Aortic peak gradient, S 8.5 mm Hg VTI ratio, LVOT/AV 0.79 Aortic valve area, VTI 2.3 cm^2 Velocity ratio, peak, LVOT/AV 0.7 Aortic valve area, peak velocity 2 cm^2 Velocity ratio, mean, LVOT/AV 0.66 Aortic valve area, mean velocity 1.9 cm^2 Aortic valve area/bsa, mean velocity 1.1 cm^2/m^2 Aorta Value Reference Aortic root ID, ED 3.2 cm Ascending aorta ID, A-P, S 3.1 cm Left atrium Value Reference LA ID, A-P, ES 3.7 cm LA ID/bsa, A-P 2.0 cm/m^2 <=2.2 LA volume, ES, 2-p 41 ml LA volume/bsa, ES, 2-p 22 ml/m^2 LA/aortic root ratio 1.13 Mitral valve Value Reference Mitral E-wave peak velocity 0.9 m/sec Mitral A-wave peak velocity 1.02 m/sec Mitral deceleration time (H) 236 ms 150 - 230 Mitral pressure half-time 69 ms Mitral peak gradient, D 3.2 mm Hg Mitral E/A ratio, peak 0.88 Mitral valve area, PHT, DP 3.2 cm^2 Right atrium Value Reference RA area, ES, A4C 11.7 cm^2 8.3 - 19.5 Pulmonic valve Value Reference Pulmonic peak gradient, S 2.2 mm Hg Legend: (L) and (H) reyna values outside specified reference range. I have personally reviewed the images and have reviewed and edited the reported findings. Electronically signed by Robin Betts MD 10/23/2018 14:16
[2018-10-23 07:58] LABS: Abs Immature Grans 0.18 k/cumm (0.0-0.09); Absolute Lymphocyte Count 1.19 k/cumm (1.2-3.4); Absolute Monocyte Count 1.54 k/cumm (0.11-0.7); Basophils % 0.1; HCT 32.2 % (36.0-46.0); HGB 10.7 g/dL (12.0-15.5); Immature Grans % 1.1; Lymphocytes % 7.3; Mean Corp. HGB Concentration 33.2 g/dL (32.0-36.0); Mean Corpuscular Hemoglobin 28.8 pg (27.0-33.0); Mean Corpuscular Volume 86.6 fL (80-95); Mean Platelet Volume 10.1 fL (8.0-11.0); Monocytes % 9.4; Neutrophils % 82.1; Platelet Count 361 x1000/uL (130-400); RBC 3.72 m/cumm (4.00-5.20); RBC Distribution Width 13.5 % (11.7-14.6); White Blood Cell Count 16.36 k/cumm (4.4-10.8)
--- NOTE | 2018-10-23 08:15 | PDOC.CMIN ---
- If Service Date Differs Date of service: 10/23/18 Time of Service: 08:15 Care Management Initial Assess REASON FOR HOSPITALIZATION:: COMMUNITY ACQUIRED PNEUMONIA PAST MEDICAL HISTORY/PAST SURGICAL HISTORY:: Medical History: Cortical cataract of left eye (Resolved). Cortical cataract of right eye (Resolved). Nuclear sclerotic cataract of left eye (Resolved). Nuclear sclerotic cataract of right eye (Resolved). Posterior subcapsular age-related cataract of left eye (Resolved). Posterior subcapsular age-related cataract, right eye (Resolved). Surgical History: Status post cataract extraction and insertion of intraocular lens of left eye (Chronic 02/20/18). Status post cataract extraction and insertion of intraocular lens of right eye (Chronic 03/06/18) PREVIOUS FUNCTIONAL STATUS/SOCIAL/FAMILY SUPPORTS:: Shoshana lives alone in a mobile home in [facility] . She has 2 steps to get into the house. Sanjana is independent with all care and ADLs. She drives and does all of her own shopping and errands. Sanjana has 3 children - 2 daughters who live locally and a son who lives in [place]. She has 6 grandchildren, and 3 great grandchildren. CURRENT FUNCTIONAL STATUS:: Sanjana was sitting up in bed when CM came to visit. She was pleasant and friendly and open to conversation. She states she is feeling much better than when she was admitted. When asked how she ended up at [facility], she stated my kids. She said she had been sick for about a month and when her family came to see her Tuesday, they felt that she was not improving and that she needed to be seen. ADVANCE DIRECTIVES:: Herminia Nino [facility]. Has patient been provided with information about the portal?: No Did the patient sign up for the portal?: No CODE STATUS:: Full Code INSURANCE COVERAGE / FINANCIAL ISSUES:: Medicare. [place] CURRENT HOME/COMMUNITY SERVICES/EQUIPMENT:: No services or assistive devices currently. PRIMARY CARE PHYSICIAN:: Vera Campoverde POTENTIAL DISCHARGE NEEDS:: Follow up with PCP and discharge plan of care PATIENT/FAMILY EDUCATION NEEDS:: Dischgarge plan. limitations, follow up plan, Ask me Three ANTICIPATED BARRIERS TO DISCHARGE:: none identified TRANSPORTATION:: via private vehicle with family when ready PLAN:: Sanjana will likely be discharged home with no new services when ready. She will transport with family via private vehicle. Sanjana will follow up with her PCP and discharge plan of care. CM will continue to provide support to patient, family and [id number] planning process.
[2018-10-23 08:22] LABS: Absolute Basophil Count 0.02 k/cumm (0.0-0.2); Absolute Neutrophil Count 13.43 k/cumm (1.2-6.7)
[2018-10-23 08:24] LABS: ALT 48 U/L (12-78); AST 23 U/L (15-37); Albumin 2.1 g/dL (3.4-5.0); Alkaline Phosphatase 157 U/L (46-116); Anion Gap 10.1 mmol/L (3-11); BUN 20 mg/dL (7-18); Bilirubin, Total 0.1 mg/dL (0.2-1.0); CO2 25.9 mmol/L (21.0-32.0); CREATININE 1.04 mg/dL (0.55-1.02); Calcium 9.6 mg/dL (8.5-10.1); Chloride 95 mmol/L (98-107); Estimated GFR 51.94 (mL/min/1.73m2); Glucose 142 mg/dL (70-100); Potassium 3.3 mmol/L (3.5-5.1); Sodium 131 mmol/L (136-145); Total Protein 6.7 g/dL (6.4-8.2)
[2018-10-23 08:33] LABS: NT-proBNP 4123 pg/mL
[2018-10-23 08:48] LABS: Diff Comment Agrees w/ Instrument; Polychromasia Present
[2018-10-23] MEDS: Normal Saline Flush 10 ML SYR IVP ×2 (09:08→14:06)
[2018-10-23] MEDS: Losartan 50 MG TAB PO (09:10)
[2018-10-23] MEDS: busPIRone 15 MG TAB PO ×3 (09:10→21:00)
[2018-10-23] MEDS: Loratidine 10 MG TAB PO (09:11)
[2018-10-23] MEDS: predniSONE 20 MG TAB 60 MG PO (09:11)
[2018-10-23] MEDS: Cholecalciferol (Vitamin D3) 1,000 UNIT TAB 1000 UNITS PO (09:11)
[2018-10-23] MEDS: Montelukast 10 MG TAB PO (09:11)
[2018-10-23] MEDS: Levothyroxine 25 MCG TAB PO (09:11)
[2018-10-23] MEDS: Metoprolol 50 MG TAB 100 MG PO ×2 (09:11→21:00)
[2018-10-23] MEDS: buPROPion-CR 150 MG TABCR PO ×2 (09:11→21:00)
[2018-10-23] MEDS: Docusate Sodium 100 MG CAP PO (09:11)
[2018-10-23] MEDS: Aspirin E.C. 81 MG TABEC PO (09:11)
[2018-10-23] MEDS: amLODIPine 5 MG TAB PO (09:12)
[2018-10-23] MEDS: Budesonide/Formoterol 160/4.5 6 GM 60 PUFF INH IH ×2 (09:27→21:00)
[2018-10-23] MEDS: Tiotropium Bromide-Respimat 10 PUFF INH IH (09:27)
[2018-10-23] MEDS: Potassium Chloride 20 MEQ TABCR 40 MEQ PO ×2 (10:32→14:07)
[2018-10-23] MEDS: Acetaminophen 325 MG TAB PO (11:42)
--- NOTE | 2018-10-23 13:14 | W.PM.PROGNOT ---
Date of Service Date of service: 10/23/18 Time of Service: 13:14 Assessment and Plan (1) Community acquired pneumonia of right lower lobe of lung: Start date: 10/23/18 Start time: 13:56 Current visit: Yes Status: Acute Failed outpatient treatment, with exacerbated COPD, currently on Levaquin day 3 PO for CAP. Breath sounds improving. Wheezing and crackles noted at bilateral lung bases. Also a component of CHF, given 40 lasix IV and 20 po daily. Requiring oxygen when ambulating at baseline 2 L. States she feels better than on admission however, continues to have SOB with excertion. Continue nebs, updrafts, steroids. (2) COPD (chronic obstructive pulmonary disease): Start date: 10/23/18 Current visit: Yes Status: Chronic as above (3) CHF (congestive heart failure), NYHA class II: Start date: 10/23/18 Start time: 14:32 Current visit: Yes Status: Acute Echo obtained, EF of 65-70. Diastolic normal. No evidence of elevated ventricular filling pressure. Systolic pressure not accurately estimated. No JVD or swelling. Crackles to lungs with elevated BNP, dose of lasix given. Continue monitor wts., I/O and sx. (4) Hyperlipidemia: Start date: 10/23/18 Start time: 14:34 Current visit: No Status: Chronic continue home medication (5) Hypertension: Start date: 10/23/18 Start time: 14:34 Current visit: No Status: Chronic monitor and continue home regimen (6) Blister: Start date: 10/23/18 Start time: 14:35 Current visit: Yes Status: Acute Blister to plantar appt with dr. campa in 2 weeks, does not disrupt ambulation, plan to see as outpatient. (7) DVT prophylaxis: Start date: 10/23/18 Start time: 14:36 Current visit: Yes Status: Acute enoxaparin SC Subjective Patient reports: feels better Interval history since last seen: Breathing has improved. Still becomes SOB with movement but better. Crackles with slight expiratory wheeze to bilateral lower bases. Not requiring oxygen at rest. BNP was elevated at 4123, with crackles in her lower bases, 40 mg IVP lasix given now and placed on 20 mg PO daily, monitor I/O, daily weights and bun/creatinine. Denies CP, N/V/D. Exam Narrative Exam Narrative: Const: Pleasant elderly female sitting up in bed enjoying lunch. Resp: crackles with expiratory wheezing to bilateral bases. Cardio:RRR no murmur, no JVD GI: round soft abd, no tenderness with palpation, bsx4 Skin: intact Neuro: AAOx3 Extrem: no edema, clubbing, cyanosis. There is a blister to plantar foot. Objective Objective Clinical Data: Abnormal lab results 10/23/18 10/23/18 10/23/18 Range/Units 05:35 05:35 05:35 WBC 16.36 H D (4.4-10.8) k/cumm RBC 3.72 L (4.00-5.20) m/cumm Hgb 10.7 L (12.0-15.5) g/dL Hct 32.2 L (36.0-46.0) % Absolute Neutrophils 13.43 H (1.2-6.7) k/cumm Absolute Lymphocytes 1.19 L (1.2-3.4) k/cumm Absolute Monocytes 1.54 H (0.11-0.7) k/cumm Sodium 131 L (136-145) mmol/L Potassium 3.3 L (3.5-5.1) mmol/L Chloride 95 L (98-107) mmol/L BUN 20 H D (7-18) mg/dL Creatinine 1.04 H (0.55-1.02) mg/dL Glucose 142 H (70-100) mg/dL Total Bilirubin 0.1 L (0.2-1.0) mg/dL Alkaline Phosphatase 157 H (46-116) U/L NT-Pro-B Natriuret Pep 4123 H ( - 299) pg/mL Albumin 2.1 L (3.4-5.0) g/dL Vital Signs Temperature 36.6 C 10/23/18 12:12 Temperature Source Tympanic 10/23/18 12:12 Pulse 75 10/23/18 12:12 Pulse Rhythm Regular 10/23/18 09:00 Pulse 82 10/22/18 07:40 Respiratory Rate 16 10/23/18 12:12 Respiratory Effort 10/23/18 09:00 Respiratory Depth Normal 10/23/18 09:00 Respiratory Pattern Normal 10/23/18 09:00 Blood Pressure 147/77 H 10/23/18 12:12 Blood Pressure Mean 81 10/22/18 07:29 Blood Pressure Position Sitting 10/21/18 20:50 Pulse Oximetry 91 L 10/23/18 12:12 Oxygen Delivery Method Room Air 10/23/18 12:12 Oxygen Flow Rate 0 10/23/18 12:12 Pain Level 3 10/23/18 12:12 Intake & Output 10/22/18 10/23/18 10/23/18 23:59 11:59 23:59 Intake Total 970 / 1120 360 / 600 240 / 600 Output Total 900 / 2425 850 / 850 Balance 70 / -1305 -490 / -250 240 / -250 Weight 77 kg Intake: IV 10 / 160 Oral 960 / 960 360 / 600 240 / 600 Output: Urine 900 / 2425 850 / 850 Other: Urine Color Yellow Yellow Light Gemma Urine Appearance Clear Clear Urine Odor Normal Normal Comment patient stated she uses the toilet independently. Voiding Methods Toilet Toilet Laboratory Results WBC 16.36 k/cumm (4.4-10.8) H D 10/23/18 05:35 RBC 3.72 m/cumm (4.00-5.20) L 10/23/18 05:35 Hgb 10.7 g/dL (12.0-15.5) L 10/23/18 05:35 Hct 32.2 % (36.0-46.0) L 10/23/18 05:35 MCV 86.6 fL (80-95) 10/23/18 05:35 MCH 28.8 pg (27.0-33.0) 10/23/18 05:35 MCHC 33.2 g/dL (32.0-36.0) 10/23/18 05:35 RDW 13.5 % (11.7-14.6) 10/23/18 05:35 Plt Count 361 x1000/uL (130-400) 10/23/18 05:35 MPV 10.1 fL (8.0-11.0) 10/23/18 05:35 Immature Gran % 1.1 10/23/18 05:35 82.1 10/23/18 05:35 Cancelled 10/22/18 07:51 7.3 10/23/18 05:35 Atypical Lymphs % Cancelled 10/22/18 07:51 9.4 10/23/18 05:35 0.0 10/23/18 05:35 0.1 10/23/18 05:35 Cancelled 10/22/18 07:51 Cancelled 10/22/18 07:51 Cancelled 10/22/18 07:51 Absolute Neutrophils 13.43 k/cumm (1.2-6.7) H 10/23/18 05:35 Absolute Lymphocytes 1.19 k/cumm (1.2-3.4) L 10/23/18 05:35 Absolute Monocytes 1.54 k/cumm (0.11-0.7) H 10/23/18 05:35 Absolute Eosinophils 0.00 k/cumm (0.0-0.7) 10/23/18 05:35 Absolute Basophils 0.02 k/cumm (0.0-0.2) 10/23/18 05:35 Nucleated RBCs Cancelled 10/22/18 07:51 Agrees w/ instrument 10/23/18 05:35 Cancelled 10/22/18 07:51 RBC Morphology See below 10/23/18 05:35 Present 10/23/18 05:35 Cancelled 10/22/18 07:51 Cancelled 10/22/18 07:51 Cancelled 10/22/18 07:51 Cancelled 10/22/18 07:51 Cancelled 10/22/18 07:51 Cancelled 10/22/18 07:51 Cancelled 10/22/18 07:51 Cancelled 10/22/18 07:51 Cancelled 10/22/18 07:51 Cancelled 10/22/18 07:51 Cancelled 10/22/18 07:51 Cancelled 10/22/18 07:51 Cancelled 10/22/18 07:51 Acanthocytes (Spur) Cancelled 10/22/18 07:51 Cancelled 10/22/18 07:51 Sodium 131 mmol/L (136-145) L 10/23/18 05:35 Sodium Cancelled 10/23/18 05:35 Potassium 3.3 mmol/L (3.5-5.1) L 10/23/18 05:35 Potassium Cancelled 10/23/18 05:35 Chloride 95 mmol/L (98-107) L 10/23/18 05:35 Chloride Cancelled 10/23/18 05:35 Carbon Dioxide 25.9 mmol/L (21.0-32.0) 10/23/18 05:35 Carbon Dioxide Cancelled 10/23/18 05:35 10.1 mmol/L (3-11) 10/23/18 05:35 Cancelled 10/23/18 05:35 BUN 20 mg/dL (7-18) H D 10/23/18 05:35 BUN Cancelled 10/23/18 05:35 1.04 mg/dL (0.55-1.02) H 10/23/18 05:35 Cancelled 10/23/18 05:35 51.94 (mL/min/1.73m2) 10/23/18 05:35 Cancelled 10/23/18 05:35 Glucose 142 mg/dL (70-100) H 10/23/18 05:35 Glucose Cancelled 10/23/18 05:35 Calcium 9.6 mg/dL (8.5-10.1) 10/23/18 05:35 Calcium Cancelled 10/23/18 05:35 Magnesium 2.0 mg/dL (1.8-2.4) 10/23/18 05:35 0.1 mg/dL (0.2-1.0) L 10/23/18 05:35 AST 23 U/L (15-37) 10/23/18 05:35 ALT 48 U/L (12-78) 10/23/18 05:35 157 U/L (46-116) H 10/23/18 05:35 < 0.05 ng/mL (0.00-0.06) 10/22/18 06:40 NT-Pro-B Natriuret Pep 4123 pg/mL (-299) H 10/23/18 05:35 6.7 g/dL (6.4-8.2) 10/23/18 05:35 2.1 g/dL (3.4-5.0) L 10/23/18 05:35 TSH 0.59 uIU/mL (0.358-3.74) 10/22/18 06:40 Yellow (Yellow) 10/21/18 23:02 Clear (Clear) 10/21/18 23:02 6.0 (5-8) 10/21/18 23:02 Ur Specific [place] 1.015 (1.005-1.025) 10/21/18 23:02 100 mg/dL (Negative) H 10/21/18 23:02 Negative mg/dL (Negative) 10/21/18 23:02 Small (Negative) H 10/21/18 23:02 Positive (Negative) H 10/21/18 23:02 Negative (Negative) 10/21/18 23:02 1.0 EU/dL (Up TO 0.2) H 10/21/18 23:02 Ur Leukocyte Esterase Large (Negative) H 10/21/18 23:02 0-2 (0-2) 10/21/18 23:02 10-20 HPF (0-5) 10/21/18 23:02 Ur Epithelial Cells Moderate HPF (Negative) 10/21/18 23:02 Negative HPF (Negative) 10/21/18 23:02 Many HPF (Negative) 10/21/18 23:02 5-10 hyaline LPF (Negative) 10/21/18 23:02 Negative (Negative) 10/21/18 23:02 Ur Culture Indicated? No/sq. contamination 10/21/18 23:02 Negative mg/dL (Negative) 10/21/18 23:02
[2018-10-23] MEDS: Furosemide 40 MG/4 ML VIAL IVP (14:07)
--- NOTE | 2018-10-23 15:25 | CHAPLAIN ---
Shoshana was resting in bed when I visited. She said her two daughters are checking in on her, and she came to the hospital because one insisted. Shoshana seems to be comfortable being here. I explained my role and offered support.
[2018-10-23] MEDS: levoFLOXacin 500 MG, levoFLOXacin 250 MG 750 MG PO (22:36)
[2018-10-23] MEDS: Pravastatin 40 MG TAB PO (22:37)
[2018-10-23] MEDS: Enoxaparin 40 MG/0.4 ML SYR SC (22:38)
[2018-10-24 03:32] VITALS: BP 125/60; PULSE 73; RESP 18; TEMP 36.8; O2SAT 94
[2018-10-24 07:25] LABS: Abs Immature Grans 0.31 k/cumm (0.0-0.09); HCT 33.9 % (36.0-46.0); Mean Corp. HGB Concentration 32.4 g/dL (32.0-36.0); Mean Corpuscular Hemoglobin 28.5 pg (27.0-33.0); Mean Corpuscular Volume 87.8 fL (80-95); Mean Platelet Volume 9.9 fL (8.0-11.0); Platelet Count 424 x1000/uL (130-400); RBC 3.86 m/cumm (4.00-5.20); RBC Distribution Width 13.9 % (11.7-14.6)
[2018-10-24 07:30] VITALS: BP 151/81; PULSE 78; RESP 18; TEMP 36.4; O2SAT 93
[2018-10-24] MEDS: Losartan 50 MG TAB PO (07:37)
[2018-10-24] MEDS: predniSONE 20 MG TAB 60 MG PO (07:37)
[2018-10-24] MEDS: Aspirin E.C. 81 MG TABEC PO (07:37)
[2018-10-24] MEDS: Docusate Sodium 100 MG CAP PO (07:37)
[2018-10-24] MEDS: Montelukast 10 MG TAB PO (07:37)
[2018-10-24] MEDS: busPIRone 15 MG TAB PO (07:37)
[2018-10-24] MEDS: Levothyroxine 25 MCG TAB PO (07:37)
[2018-10-24] MEDS: buPROPion-CR 150 MG TABCR PO (07:37)
[2018-10-24] MEDS: Metoprolol 50 MG TAB 100 MG PO (07:38)
[2018-10-24] MEDS: Cholecalciferol (Vitamin D3) 1,000 UNIT TAB 1000 UNITS PO (07:38)
[2018-10-24] MEDS: amLODIPine 5 MG TAB PO (07:38)
[2018-10-24 07:44] LABS: ALT 52 U/L (12-78); AST 30 U/L (15-37); Albumin 2.2 g/dL (3.4-5.0); Alkaline Phosphatase 152 U/L (46-116); Anion Gap 8.4 mmol/L (3-11); BUN 22 mg/dL (7-18); Bilirubin, Total 0.3 mg/dL (0.2-1.0); CO2 27.6 mmol/L (21.0-32.0); CREATININE 1.07 mg/dL (0.55-1.02); Chloride 98 mmol/L (98-107); Estimated GFR 50.27 (mL/min/1.73m2); Glucose 79 mg/dL (70-100); Magnesium 1.8 mg/dL (1.8-2.4); Potassium 4.4 mmol/L (3.5-5.1); Sodium 134 mmol/L (136-145); Total Protein 6.8 g/dL (6.4-8.2)
[2018-10-24] MEDS: Furosemide 20 MG TAB PO (07:44)
[2018-10-24] MEDS: Budesonide/Formoterol 160/4.5 6 GM 60 PUFF INH IH (07:44)
[2018-10-24 07:48] LABS: Absolute Lymphocyte Count 1.54 k/cumm (1.2-3.4)
[2018-10-24 07:49] LABS: Diff Comment Manual Differential; Polychromasia Present
[2018-10-24] MEDS: Tiotropium Bromide-Respimat 10 PUFF INH IH (07:49)
--- NOTE | 2018-10-24 08:42 | PDOC.CMPRO ---
- If Service Date Differs Date of service: 10/24/18 Time of Service: 08:42 Care Management Progress Note S/O: A: Sanjana is a 73 year old woman admitted with community acquired pneumonia P:Sanjana will likely return home with a resumption of home oxygen and no additional services. She will follow up with her PCP and discharge plan of care. CM will continue to provide support patient, family and discharge plan.
[2018-10-24 08:53] VITALS: O2SAT 93
[2018-10-24] MEDS: Magnesium Oxide 400 MG TAB PO (10:37)
[2018-10-24 11:05] VITALS: BP 133/70; PULSE 74; RESP 18; TEMP 36.2; O2SAT 93
[2018-10-24] MEDS: Normal Saline Flush 10 ML SYR IVP (12:32)
--- NOTE | 2018-10-24 13:03 | PDOC.CMDIS ---
- If Service Date Differs Date of service: 10/24/18 Time of Service: 13:03 LACE Index Scoring Tool - Questions: Length of Stay (in days): 1 Acuity (Admit via E.D.?): Yes Comorbidities: Chronic Pulmonary Disease E.D. Visits: 1 - Answers: Total Score: 7 Risk of Readmission: Low Risk Care Management Discharge Reason for Hospitalization: COMMUNITY ACQUIRED PNEUMONIA Discharge Plan: Sanjana will be discharged home with no new services this afternoon.She will transport with family via private vehicle. Sanjana will follow up with her PCP and discharge plan of care. Patient/Family Education Needs: Dischgarge plan. limitations, follow up plan, Ask me Three
--- NOTE | 2018-10-24 13:13 | W.PM.DS.N ---
Date of service: 10/24/18 Time of Service: 13:13 DS: Diagnosis Discharge Diagnosis (1) Community acquired pneumonia of right lower lobe of lung: Status: Acute (2) COPD (chronic obstructive pulmonary disease): Status: Chronic (3) CHF (congestive heart failure), NYHA class II: Status: Acute (4) Hyperlipidemia: Status: Chronic (5) Hypertension: Status: Chronic (6) Blister: Status: Acute Discharge Plan Disposition Patient Disposition: HOME Condition: Stable Discharge Details Chief Complaint: RespSymp Clinical Impression: Community acquired pneumonia, Hypoxemia, Acute hyponatremia, Acute UTI Reason For Visit: COMMUNITY AQUIRED PNEUMONIA,HYDONATREMIA,HYPOXEMIA Admit Date/Time: 10/23/18 09:51 Admit Provider: Jeff Garcia Attending Provider: Steff Banda Primary Care Provider: Vera Campoverde ED Provider: Mario Katz Home Meds and New Rx's Prescriptions: New levofloxacin [Levaquin] 750 mg Tablet 750 mg PO HS Qty: 2 RF: 0 prednisone 10 mg tablet 10 mg PO DAILY Qty: 20 RF: 0 Continued amlodipine 5 MG tablet 5 mg PO DAILY Qty: 30 RF: 0 meloxicam 7.5 MG tablet 7.5 mg PO BID Qty: 60 RF: 0 losartan 50 MG tablet 1 tab PO DAILY RF: 0 pravastatin 40 MG tablet 1 tab PO HS RF: 0 metoprolol tartrate 100 MG tablet 1 tab PO BID RF: 0 aspirin [Aspir-81] 81 MG tablet,delayed release (DR/EC) 1 tab PO DAILY RF: 0 Spiriva with HandiHaler 1 PUFF capsule, w/inhalation device 1 inh Inhalation DAILY RF: 0 albuterol sulfate 3 ML solution for nebulization 3 ml UPD Q2H PRN PRNQty: 90 RF: 0 buspirone 15 MG tablet 15 mg PO TID RF: 0 clonazepam 0.5 MG tablet 0.5 - 1 tab PO HS PRNRF: 0 bupropion HCl [Wellbutrin] 100 MG tablet 150 mg PO BID RF: 0 Symbicort 10.2 GM HFA aerosol inhaler 2 puff Inhalation BID Qty: 1 RF: 0 loratadine 10 MG tablet 1 tab PO DAILY RF: 0 nitroglycerin [Nitrostat] 0.4 mg Tablet, Sublingual 0.4 mg SUBLINGUAL ONCE RF: 0 docusate sodium 100 mg Capsule 100 mg PO DAILY RF: 0 montelukast [Singulair] 10 mg Tablet 10 mg PO DAILY RF: 0 albuterol sulfate [Ventolin HFA] 90 mcg/actuation Hfa Aerosol Inhaler 2 puff INHALATION .Q4-6 PRN RF: 0 cholecalciferol (vitamin D3) [Vitamin D3] 1,000 unit Capsule 1,000 unit PO DAILY RF: 0 levothyroxine 25 mcg Capsule 25 mcg PO DAILY RF: 0 Discharge Instructions Instructions: Community Acquired Pneumonia (DC) Additional Instructions: Taper prednisone as follows: take 4 tabs x2 days, then 3 tabs x2 days, then 2 tabs x2 days, then 1 tab x2 days then stop. Take the antibiotics (Levaquin) until they are gone. Follow up labs next week. Follow up with your PCP as scheduled. Take care! Care Plan Goals: Shoshnaa Cheema is a very pleasant 73-year-old female with a history of COPD with home oxygen, coronary artery disease with previous AR and single-vessel coronary stent approximately 23 years ago, hypothyroidism, essential hypertension, hyperlipidemia who presented to the ED on 10/21/18 with reports of decreased appetite and poor oral intake with nausea over the last couple weeks along with increasing dyspnea and a cough productive of brownish-greenish mucus associated with some chills and dizziness but no syncope or chest pain or pressure. She said she had similar symptoms approximately 2 months ago and was ill for about 3 weeks treated with a tapered dose of prednisone and an oral Z-Rick. She transiently improved for a few days but then got worse once she completed the prednisone. In the ED she had a CT head which was unremarkable. Her chest x-ray showed hyperinflated lungs suggesting underlying COPD and Question of a developing right basilar infiltrate. Her labs were remarkable for a mild leukocytosis of 12,400 chemistry profile was remarkable for hyponatremia with serum sodium 128. With a normal BUN of 15 and a borderline creatinine 1.08. AST was mildly elevated 69 alkaline phosphatase is mildly elevated 207. Troponin was negative at less than 0.05. proBNP was elevated 2826 which is up from her baseline. Her EKG showed normal sinus rhythm rate 87 bpm no acute ischemic ST or T wave changes. She was given IV steroids, nebulizer treatments and IV Levaquin. There was question of possible fluid overload with her history of CHF and she was given a dose of IV lasix. She was admitted to the med/surg floor for further observation and management. Upon admission, she was placed on oral levaquin and oral steroids. Her condition improved over the following days. She went on to have an echocardiogram which showed LVEF 65-70%, systolic pressure could not be accurately estimated. By the day of discharge, her cough is largely improved, she was mildly short of breath on exertion, but reports this is her baseline. She had no wheezing. She continued to have faint rales to her right base. No edema. She is eager for discharge home. She will be discharged home to complete a course of antibiotics and taper off of steroids. Her renal function improved to better than baseline. Her sodium improved to 134. She has a mild leukocytosis but is on steroids and has been afebrile and symptoms are otherwise improved. She will have follow up labs as an outpatient. She will follow up with her PCP as scheduled. She has an appointment scheduled with Dr. Davis, Pulmonology, in the next 2 weeks. Stand Alone Forms: Nursing Discharge Form Referrals: Vera Campoverde [Primary Care Provider] - 10/27/18 11:45 am Activity:: Activity as Tolerated Equipment/Supplies:: No Equipment Needed Diet:: heart healthy Discharge Orders Discharge Orders: Discharge Order (Routine); Ordered 10/24/18 Ordered By: Luz Marina Bauman Other Ambulatory Orders: Basic Metabolic Panel (Routine) Timeframe: 1 Week Location: None Selected Ordered By: Luz Marina Bauman Complete Blood Count No Diff (Routine) Timeframe: 1 Week Location: None Selected Ordered By: Luz Marina Bauman Exam Narrative Exam Narrative: General: Pleasant elderly female sitting up in the chair, dressed, alert and oriented, pleasant and cooperative, in NAD. HEENT: normocephalic, atraumatic, pupils equal and round, EOM intact, mucous membranes moist. Resp: Respirations even and unlabored. Fine rales to right base. No wheezing. Cardio: Regular rate and rhythm, no murmur, click, gallop or rub. GI: normoactive bowel sounds, round soft abdomen, nontender on palpation Skin: intact Extremities: no edema, clubbing, cyanosis. DS: Data Vitals/I&O Vitals and I&O: Vital Signs Temperature 36.2 C L 10/24/18 11:05 Temperature Source Tympanic 10/24/18 11:05 Pulse 74 10/24/18 11:05 Pulse Rhythm Regular 10/24/18 07:30 Pulse 82 10/22/18 07:40 Respiratory Rate 18 10/24/18 11:05 Respiratory Effort Non-Labored 10/24/18 07:30 Respiratory Depth Normal 10/24/18 07:30 Respiratory Pattern Normal 10/24/18 07:30 Blood Pressure 133/70 10/24/18 11:05 Blood Pressure Mean 81 10/22/18 07:29 Blood Pressure Position Sitting 10/21/18 20:50 Pulse Oximetry 93 L 10/24/18 11:05 Oxygen Delivery Method Room Air 10/24/18 11:05 Oxygen Flow Rate 0 10/24/18 11:05 Pain Level 0 10/24/18 11:05 Intake & Output 10/23/18 10/24/18 10/24/18 23:59 11:59 23:59 Intake Total 490 / 850 240 / 250 10 / 250 Output Total 1700 / 2550 1200 / 1200 Balance -1210 / -1700 -960 / -950 10 / -950 Weight 75 kg Intake: IV 10 Oral 480 / 840 240 / 240 Output: Urine 1700 / 2550 1200 / 1200 Other: Urine Color Yellow Pale Pale Yellow Yellow Straw Urine Appearance Clear Clear Clear Urine Odor Normal Normal None Voiding Methods Toilet Toilet Toilet Completed studies during hospitalization [Text1]: 10/21/18: CT BRAIN: Noncontrast examination was performed. There is patient motion artifact which does limit evaluation of the examination. Comparison is 12/18/15 The ventricles and sulci are consistent with the patient's age. No acute territorial infarct, hemorrhage, midline shift or mass effect is seen. The ventricles are intact. The basilar cisterns are patent. The visualized paranasal sinuses are clear as are the mastoid air cells. The calvarium is intact. IMPRESSION: No acute intracranial process. CHEST X-RAY: Frontal and lateral views. Comparison 09/19/18 Heart size and pulmonary vasculature are stable and within normal limits. There is a question of increased lung markings in the right lung base and a developing pneumonia cannot be excluded. The left lung appears clear. The lungs are hyperinflated suggesting underlying COPD. Age related degenerative changes are seen in the spine. IMPRESSION: Question of a developing right basilar infiltrate. This may represent pneumonia. Please correlate clinically Date of study: 10/23/2018 Transthoracic Echocardiography M-mode, complete 2D, complete spectral Doppler, and color Doppler *STUDY CONCLUSIONS* Summary: 1. Left ventricle: The cavity size was normal. Systolic function was hyperdynamic. The estimated ejection fraction was 65-70%. Diastolic parameters were normal. There was no evidence of elevated ventricular filling pressure by Doppler parameters. 2. Right ventricle: The cavity size was normal. Wall thickness was normal. Systolic function was normal. 3. Atrial septum: No defect or patent foramen ovale was identified. 4. Pulmonary arteries: Systolic pressure could not be accurately estimated. 5. Inferior vena cava: The vessel was normal in size. The respirophasic diameter changes were in the normal range (greater than or equal to 50%), consistent with normal central venous pressure. Labs on day of discharge: Labs from last 24 hours 10/24/18 10/24/18 06:05 06:05 WBC 15.40 H RBC 3.86 L Hgb 11.0 L Hct 33.9 L MCV 87.8 MCH 28.5 MCHC 32.4 RDW 13.9 Plt Count 424 H MPV 9.9 Immature Gran % See Differential Neutrophils % 76.0 Lymphocytes % 10.0 Monocytes % 13.0 Eosinophils % 0.0 Basophils % 0.0 Metamyelocytes % 1.0 Absolute Neutrophils 11.70 H Absolute Lymphocytes 1.54 Absolute Monocytes 2.00 H Absolute Eosinophils 0.00 Absolute Basophils 0.00 Differential Comment Manual differential RBC Morphology See below Polychromasia Present Sodium 134 L Potassium 4.4 D Chloride 98 Carbon Dioxide 27.6 Anion Gap 8.4 BUN 22 H Creatinine 1.07 H Estimated GFR/1.73 m2 50.27 Glucose 79 D Calcium 9.0 Magnesium 1.8 Total Bilirubin 0.3 AST 30 ALT 52 Alkaline Phosphatase 152 H Total Protein 6.8 Albumin 2.2 L COUNTS INCLUDE 234 BEDS AT THE [facility] Medical History CAD (coronary artery disease) (Chronic) COPD (chronic obstructive pulmonary disease) (Chronic) Cortical cataract of left eye (Resolved) Cortical cataract of right eye (Resolved) Hyperlipidemia (Chronic) Hypertension (Chronic) Nuclear sclerotic cataract of left eye (Resolved) Nuclear sclerotic cataract of right eye (Resolved) Posterior subcapsular age-related cataract of left eye (Resolved) Posterior subcapsular age-related cataract, right eye (Resolved) Smoker (Chronic) Surgical History Status post cataract extraction and insertion of intraocular lens of left eye (Chronic 02/20/18) Status post cataract extraction and insertion of intraocular lens of right eye (Chronic 03/06/18) Social History Smoking/Tobacco Use Status: Former Tobacco Use Alcohol Intake: never Drug use: Never Do you feel safe at home: Yes Do you feel safe in your relationship?: Yes
== END 2018-10-24 13:54 | disposition home or self-care (01) | DRG 194 ==
LOC: ER 23:19 → MS 10-22 08:22
PROVIDERS: Internal Medicine; Student in an Organized Health Care Education/Training Program; Admitting Provider Internal Medicine; Emergency Provider Student in an Organized Health Care Education/Training Program; PCP Nurse Practitioner Family; Visit Provider Internal Medicine
DX: J18.1 Lobar pneumonia, unspecified organism (principal); J44.0 Chronic obstructive pulmonary disease with (acute) lower respiratory infection; E87.1 Hypo-osmolality and hyponatremia; R09.02 Hypoxemia; I11.0 Hypertensive heart disease with heart failure; I50.9 Heart failure, unspecified; F17.210 Nicotine dependence, cigarettes, uncomplicated; E78.5 Hyperlipidemia, unspecified; Z99.81 Dependence on supplemental oxygen; E03.9 Hypothyroidism, unspecified
CPT/HCPCS: 36415; 80048; 80053; 93005; 93306; 94640; 96365; 96366; 96375; 99220; 99233; 99239; 99285; J1650; 70450; 71046; 81003; 81015; 83735; 83880; 84443; 84484; 85025; 93010; 94667; G0378; J1940; J1941; J1956; J2930; J7512; J7620

== ENCOUNTER 2018-11-11 21:15 | Emergency (ER) | payer MEDICARE, SELFPAY ==
[2018-11-11] VITALS (42 sets, daily range): BP systolic 83–153; BP diastolic 43–110; PULSE 84–106; RESP 14–33; TEMP 36.7–37.2; O2SAT 89–97
--- NOTE | 2018-11-11 21:17 | NUR.NOTE ---
Nursing Note: pt was treated in our ED last night for heroin OD. pt is here today because i need to get into [facility] and im gonna hurt myself if i dont pt appears visibly intoxicated PT is with boyfriend and aunt
--- NOTE | 2018-11-11 21:41 | ED.GENADUL_ITS ---
Discharge Plan Disposition Patient Disposition: [facility] Condition: Stable Discharge Details Chief Complaint: SOB Clinical Impression: Aortic dissection, COPD (chronic obstructive pulmonary disease) Primary Care Provider: Vera Campoverde ED Provider: Gentry Betancourt Hamilton Meddanika and New Rx's Prescriptions: No Action amlodipine 5 MG tablet 5 mg PO DAILY Qty: 30 RF: 0 meloxicam 7.5 MG tablet 7.5 mg PO BID Qty: 60 RF: 0 losartan 50 MG tablet 1 tab PO DAILY RF: 0 pravastatin 40 MG tablet 1 tab PO HS RF: 0 metoprolol tartrate 100 MG tablet 1 tab PO BID RF: 0 aspirin [Aspir-81] 81 MG tablet,delayed release (DR/EC) 1 tab PO DAILY RF: 0 albuterol sulfate 3 ML solution for nebulization 3 ml UPD Q2H PRN PRNQty: 90 RF: 0 buspirone 15 MG tablet 15 mg PO TID RF: 0 clonazepam 0.5 MG tablet 0.5 - 1 tab PO HS PRNRF: 0 bupropion HCl [Wellbutrin] 100 MG tablet 150 mg PO BID RF: 0 levofloxacin [Levaquin] 750 mg Tablet 750 mg PO HS Qty: 2 RF: 0 prednisone 1 mg Tablet 3 mg PO DAILY AM RF: 0 Trelegy Ellipta 100-62.5-25 mcg Blister With Device INHALATION RF: 0 omeprazole 20 mg Capsule,Delayed Release(Dr/Ec) 20 mg PO DAILY RF: 0 loratadine 10 MG tablet 1 tab PO DAILY RF: 0 nitroglycerin [Nitrostat] 0.4 mg Tablet, Sublingual 0.4 mg SUBLINGUAL ONCE RF: 0 docusate sodium 100 mg Capsule 100 mg PO DAILY RF: 0 montelukast [Singulair] 10 mg Tablet 10 mg PO DAILY RF: 0 albuterol sulfate [Ventolin HFA] 90 mcg/actuation Hfa Aerosol Inhaler 2 puff INHALATION .Q4-6 PRN RF: 0 cholecalciferol (vitamin D3) [Vitamin D3] 1,000 unit Capsule 1,000 unit PO DAILY RF: 0 levothyroxine 25 mcg Capsule 25 mcg PO DAILY RF: 0 Medical Decision Making Patient is here because of epigastric pain. She does not feel that her shortness of breath is necessarily any different than it chronically is. She is on inhalers, nebulizers, prednisone, antibiotics prescribed by pulmonary at this time. She is actually here because of the epigastric discomfort. She does not have chest pain. She has just recently stopped taking meloxicam. She intermittently takes ibuprofen. She is on a prednisone taper. Suspect that her pain is related to acid type disease. She has a benign abdomen. She denies chest pain. EKG shows nonspecific ST depression and T wave inversions laterally which are suggestive of rate related changes. IV was established and laboratory studies obtained including a troponin. She reports having this pain for 3 days now constantly. Chest x-ray ordered. IV Pepcid and oral Carafate given. Laboratory studies show that her troponin is negative. Her sodium is low at 126 and has been in the past. Creatinine a little higher than baseline at 1.4. In speaking with the patient's daughter even though patient reports eating and drinking normally daughter states not so. Suspect her changes are related to some mild dehydration. These corrected on their own with some IV fluids last month on her admission. White count is elevated to 16 but she is on prednisone. Hemoglobin is stable. Magnesium is low at 1.4 and is replaced intravenously with 2 g. Urine is positive for blood and is noted to have microscopic hematuria. There are no white cells present. She is not having urinary symptoms. Chest x-ray shows a persistent right lower lobe infiltrate that is unchanged and not worse. Patient does feel better after the Pepcid and Carafate. Abdomen remains benign. Suspect her epigastric pain is acid related. Heart rate has not come down. Repeat EKG continues to show ST depression and T wave inversion laterally. Suspect rate related but cannot definitively rule out possibility of ischemia. She is not having chest pain. Her daughter does feel that her breathing is a little bit worse despite seeing Dr. Davis this week and having medications adjusted. She is currently on 30 of prednisone as well as azithromycin in addition to her inhalers and nebulizers. Considered sending patient home but given persistent mild tachycardia with EKG changes, epigastric discomfort, continued shortness of breath feel we should probably admit. Unfortunately, there are no monitor beds here. Since her health therapist is at [facility] I did call and speak to the hospitalist there. After discussion with hospitalist at [facility] we will get a CTA of the chest to evaluate for possible pulmonary embolus. We will also get a second troponin. Will call back to [facility] with these results with plan of transfer at that time pending results of the studies. 06:30 - patient second troponin is negative. She has remained stable. I received call from radiology stating that the patient was found to have an aortic dissection, type A. There are no pulmonary embolus. There are no consolidations. [facility] called and CT scan images sent down. Spoke with cardiothoracic surgeon Dr. Tucker. He is not convinced patient has a true dissection but agrees that the aorta is not normal. Recommends transfer to ED so that patient can be seen there. Would like systolic pressure below 120. I had ordered esmolol drip to be started prior to discussion as her heart rate and blood pressure were elevated. We will see how she tolerates this. [facility] is not flying because of weather so she will need to go by ground. I did speak to the patient and her daughter. Patient does desire transfer to [facility] to be evaluated. However, if she goes into cardiac arrest she does not wish to be resuscitated. Because of the esmolol drip her medics were unable to transport. Trying to arrange for ground transportation by [facility] or FACT is going to delay treatment. Esmolol does not seem to be controlling her heart rate at all. Blood pressure is also difficult to control. Consider switching to diltiazem which would allow us to transport. Also may get better results for management of heart rate and blood pressure. 07:00 - so heart rate has not changed at all with esmolol. Blood pressure also slowly responsive. Unable to get DART or FACT here quickly. Have decided to discontinue esmolol and start diltiazem in order to control blood pressure and be able to transfer patient by [facility] . Medical Records Medical records reviewed: Yes I reviewed the patient's medical records. Lab Data Lab results reviewed: Yes I reviewed the patient's lab results. ECG Data Attestation: I personally reviewed and interpreted this ECG (s) as follows: Prior ECG tracings: not available for review Interpretation: Sinus rhythm at a rate of 99. Normal axis and intervals. There are nonspecific ST-T wave depression and T wave inversions laterally. These are new compared to previous but I think are rate related. HPI General Mode of arrival: ambulatory . Date/Time Provider Initiated Documentation: 11/11/18 21:21 . Limitations to Documentation: no limitations . Information obtained by: patient, RN notes reviewed and old records reviewed . HPI Narrative: Patient presents to ED with chief complaint of epigastric pain. Patient had originally told her nurse that she was here for shortness of breath. When I questioned patient about that she states she is always short of breath. She was recently admitted to this hospital with pneumonia. She has subsequently been discharged and followed up with her health therapist, Dr. Davis. She is currently on a prednisone taper. She also continues on antibiotics. Her shortness of breath is intermittent and associated with exertion. She is on oxygen. She does not really think that she is any more short of breath than she has been. She denies having any chest pain. She denies fever. She points to her epigastric area as to where she is having discomfort. She describes it as a dull ache. It had been present intermittently for the last couple weeks. For the last 3 days it is been constant. There is no real radiation. She denies nausea, vomiting, diarrhea, black stool, bloody stool. She reports eating and drinking. She tells me that this is her reason for coming into the ED tonight, continued/worsening epigastric abdominal pain. Related Data Home Medications Medication Instructions Recorded Confirmed aspirin [Aspir-81] 1 tab PO DAILY 05/13/13 11/12/18 losartan 1 tab PO DAILY 05/13/13 11/12/18 metoprolol tartrate 1 tab PO BID 05/13/13 11/12/18 pravastatin 1 tab PO HS 05/13/13 11/12/18 albuterol sulfate 3 ml UPD Q2H PRN PRN #90 vial 05/16/13 11/12/18 buspirone 15 mg PO TID 07/23/14 11/12/18 bupropion HCl [Wellbutrin] 150 mg PO BID 06/14/15 11/12/18 clonazepam 0.5 - 1 tab PO HS PRN 06/14/15 11/12/18 amlodipine 5 mg PO DAILY #30 tab-cap 08/04/16 11/12/18 loratadine 1 tab PO DAILY 07/31/17 11/12/18 meloxicam 7.5 mg PO BID #60 tab 10/11/17 11/12/18 albuterol sulfate [Ventolin HFA] 2 puff INHALATION .Q4-6 PRN 02/15/18 11/12/18 cholecalciferol (vitamin D3) 1,000 unit PO DAILY 02/15/18 11/12/18 [Vitamin D3] docusate sodium 100 mg PO DAILY 02/15/18 11/12/18 levothyroxine 25 mcg PO DAILY 02/15/18 11/12/18 montelukast [Singulair] 10 mg PO DAILY 02/15/18 11/12/18 nitroglycerin [Nitrostat] 0.4 mg SUBLINGUAL ONCE 02/15/18 11/12/18 levofloxacin [Levaquin] 750 mg PO HS #2 tab 10/24/18 11/12/18 prednisone 3 mg PO DAILY AM 11/11/18 11/11/18 [id number] INHALATION 11/12/18 [Trelegy Ellipta] omeprazole 20 mg PO DAILY 11/12/18 11/12/18 Previous Rx's Medication Instructions Recorded albuterol sulfate 3 ml UPD Q2H PRN PRN #90 vial 05/16/13 meloxicam 7.5 mg PO BID #60 tab 10/11/17 levofloxacin [Levaquin] 750 mg PO HS #2 tab 10/24/18 Allergies Allergy/AdvReac Type Severity Reaction Status Date / Time amoxicillin Allergy Intermediate Hives Unverified 11/11/18 21:34 clarithromycin Allergy Intermediate Hives Verified 11/11/18 21:34 Penicillins Allergy Intermediate Hives Unverified 11/11/18 21:34 General Stated Complaint: SOB MAURICIO: 3 Review of Systems Review of Systems 01/15 Review of Systems completed and is negative except as stated above in HPI (Systems reviewed: Const, Eyes, ENT, Resp, CV, GI, , MSK, Skin, Neuro) [facility] Medical History CAD (coronary artery disease) (Chronic) COPD (chronic obstructive pulmonary disease) (Chronic) Cortical cataract of left eye (Resolved) Cortical cataract of right eye (Resolved) Hyperlipidemia (Chronic) Hypertension (Chronic) Nuclear sclerotic cataract of left eye (Resolved) Nuclear sclerotic cataract of right eye (Resolved) Posterior subcapsular age-related cataract of left eye (Resolved) Posterior subcapsular age-related cataract, right eye (Resolved) Smoker (Chronic) Surgical History Status post cataract extraction and insertion of intraocular lens of left eye (Chronic 02/20/18) Status post cataract extraction and insertion of intraocular lens of right eye (Chronic 03/06/18) Social History Smoking/Tobacco Use Status: Former Tobacco Use Alcohol Intake: never Drug use: Never Do you feel safe at home: Yes Do you feel safe in your relationship?: Yes Exam Narrative Exam Narrative: Vitals: Afebrile here. Mildly tachycardic and hypertensive here. Saturations in the mid 90s on her 2 L of oxygen. Const: Elderly female in NAD. HEENT: NC/AT. Normal facial exam. Eyes: Normal conjunctiva and sclera. Neck: Supple. Trachea midline. Lungs: No distress. Mild purse lipped breathing. No wheezing currently. Some faint rhonchi at the bases. Cor: RRR without murmur/gallop. Good radial pulses. GI: Soft. NT/ND. No guarding or rebound. No epigatric or RUQ tenderness. Neuro: A+O x 3. CN grossly in tact. Good strength and no focal deficit. Ext: No C/C/E. No deformity or tenderness. Skin: Warm and dry without rash. Course Vital Signs Temperature 99.0 F 11/11/18 21:18 Pulse 98 H 11/11/18 21:18 Respiratory Rate 24 11/11/18 21:18 Blood Pressure 146/64 H 11/11/18 21:18 Pulse Oximetry 96 11/11/18 21:18 Temperature 99.0 F 11/11/18 21:18 Temperature Source Skin 11/11/18 21:18 Pulse 98 H 11/11/18 21:18 Respiratory Rate 24 11/11/18 21:18 Respiratory Effort 11/11/18 21:33 Blood Pressure 146/64 H 11/11/18 21:18 Blood Pressure Position Supine 11/11/18 21:18 Pulse Oximetry 96 11/11/18 21:18 Oxygen Delivery Method Nasal Cannula 11/11/18 21:18 Oxygen Flow Rate 2 11/11/18 21:18 Pain Level 9 11/11/18 21:18 Critical Care Time Critical Care Time: Yes Total Critical Care Time: 60 Attestation: Due to discovered aortic dissection, this patient had a high probability of imminent or life-threatening deterioration, which required my direct attention, intervention, and personal management. I have personally provided minutes of critical care time exclusive of time spent on separately billable procedures. Time includes review of laboratory data, radiology results, discussion with consultants, and monitoring for potential decompensation. In terventions were performed as documented above.
[2018-11-11 22:07] LABS: Abs Immature Grans 0.16 k/cumm (0.0-0.09); Basophils % 0.1; Eosinophils % 0.4; HCT 30.6 % (36.0-46.0); HGB 10.1 g/dL (12.0-15.5); Mean Corpuscular Volume 84.8 fL (80-95); Monocytes % 4.7; Neutrophils % 89.8; Platelet Count 385 x1000/uL (130-400); RBC 3.61 m/cumm (4.00-5.20); RBC Distribution Width 14.2 % (11.7-14.6); White Blood Cell Count 16.06 k/cumm (4.4-10.8)
[2018-11-11 22:11] LABS: Absolute Basophil Count 0.02 k/cumm (0.0-0.2); Absolute Eosinophil Count 0.06 k/cumm (0.0-0.7); Absolute Lymphocyte Count 0.64 k/cumm (1.2-3.4); Absolute Monocyte Count 0.75 k/cumm (0.11-0.7); Absolute Neutrophil Count 14.42 k/cumm (1.2-6.7)
[2018-11-11] MEDS: Normal Saline 1,000 ML 125 ML IV (22:20)
[2018-11-11 22:30] LABS: ALT 26 U/L (12-78); AST 25 U/L (15-37); Albumin 2.2 g/dL (3.4-5.0); Alkaline Phosphatase 115 U/L (46-116); Anion Gap 11.9 mmol/L (3-11); BUN 24 mg/dL (7-18); Bilirubin, Total 0.3 mg/dL (0.2-1.0); CO2 23.1 mmol/L (21.0-32.0); CREATININE 1.42 mg/dL (0.55-1.02); Calcium 8.7 mg/dL (8.5-10.1); Chloride 91 mmol/L (98-107); Estimated GFR 36.26 (mL/min/1.73m2); Glucose 77 mg/dL (70-100); Lipase 99 U/L (73-393); Magnesium 1.4 mg/dL (1.8-2.4); Potassium 3.8 mmol/L (3.5-5.1); Sodium 126 mmol/L (136-145); Total Protein 7.3 g/dL (6.4-8.2)
[2018-11-11 22:34] LABS: Troponin I < 0.05 ng/mL (0.00-0.06)
--- NOTE | 2018-11-11 22:57 | DI.RAD_ITS ---
SYMPTOM/DIAGNOSIS: SOB PA AND LATERAL CHEST: 11/11 Note is made of changes of COPD. The heart is mildly enlarged. Aortic contour has changed in comparison with previous examinations including 10/21/[address] angiography on 11/12, confirmed new aortic dissection and aortic ectasia. Please see accompanying chest CT report
--- NOTE | 2018-11-11 23:19 | DI.VRAD_ITS ---
EXAM: XR Chest, 2 Views EXAM DATE/TIME: 11/11/2018 9:56 PM CLINICAL HISTORY: 73 years old, female; Other: SOB TECHNIQUE: Imaging protocol: XR of the chest, 2 views. COMPARISON: CR XR CHEST 2V PA LATERAL 10/21/2018 10:21 PM FINDINGS: Lungs: Hyperinflation lungs. Asymmetric increased density in right lung base unchanged. Pleural space: Flattening of hemidiaphragms. No pleural effusion. No pneumothorax. Heart/Mediastinum: Unremarkable. No cardiomegaly. Bones/joints: Unremarkable. IMPRESSION: 1. Persistent asymmetric increased density in right lung base could represent scarring, subsegmental atelectasis or infiltrate. 2. Radiographic appearance consistent with the presence of COPD. Dictated and Authenticated by: Trung Rene MD. Ordering:MANDO Rinaldi MD
[2018-11-11] MEDS: FAMOTIDINE 20 MG/50 ML BAG 100 MG IVPB (23:25)
[2018-11-11 23:38] LABS: Bilirubin Negative (Negative); Blood Moderate (Negative); Clarity Clear (Clear); Glucose Negative (Negative); Ketones Negative (Negative); Leukocyte Esterase Trace (Negative); Nitrite Negative (Negative); Urobilinogen 0.2 EU/dL (Up TO 0.2)
[2018-11-11 23:45] LABS: Bacteria Rare HPF (Negative); Casts Negative LPF (Negative); Crystals Negative HPF (Negative); Epithelial Cells Few HPF (Negative); Mucus Negative (Negative); Other Cells Negative (Negative); RBC 20-50 (0-2)
[2018-11-12] VITALS (69 sets, daily range): BP systolic 106–174; BP diastolic 54–122; PULSE 92–111; RESP 16–33; TEMP 36.7; O2SAT 92–97
[2018-11-12] MEDS: MAGNESIUM SULFATE 2 GM/50 ML BAG IVPB (00:30)
[2018-11-12] MEDS: Sucralfate 1 GM TAB PO (01:03)
--- NOTE | 2018-11-12 03:48 | DI.CT_ITS ---
SYMPTOM/DIAGNOSIS: PERSISTENT TACHYCARDIA, SOB, RECENT HOSPITALIZATION. CT ANGIOGRAPHY CHEST: 11/12 CT angiography was performed with multi slice acquisition and multi planar and 3D reconstruction. CT angiography of the chest was performed with a bolus infusion of 67 cc Omnipaque 350 The examination is compared with previous chest CT of 09/07/2016. There is new ectasia of the thoracic aorta to approximately 4 cm in ascending order 4.2 cm in aortic arch, and there is dissection extending from ascending aorta just above the aortic valve to at least the proximal descending aorta or distal arch. Unopacified soft tissue density material gives apparent enlarged diameter of arch and descending aorta, the possibility of pseudo aneurysm would have to be raised as well. Branch vessels of the thoracic aorta appear patent. No pulmonary embolic disease. Visualized upper abdominal aorta unremarkable except for calcified plaque. Lungs are predominantly clear. No pleural effusion. No significant pericardial effusion. No mediastinal or hilar adenopathy. The visualized portions of the liver, spleen and pancreas are unremarkable. Presumed left sided renal cysts noted. CONCLUSION: New thoracic aortic dissection in an ectatic thoracic aorta. Pseudo aneurysm not excluded as described above. Immediate thoracic surgical consult recommended.
[2018-11-12] MEDS: LORazepam 2 MG/ML VIAL 0.5 MG IVP (04:00)
[2018-11-12] MEDS: Omnipaque 350 MG/ML 100 ML BTL IJ (04:56)
[2018-11-12 05:06] LABS: Troponin I < 0.05 ng/mL (0.00-0.06)
--- NOTE | 2018-11-12 05:56 | DI.VRAD_ITS ---
EXAM: CT Angiography Chest With Contrast EXAM DATE/TIME: 11/12/2018 3:51 AM CLINICAL HISTORY: 73 years old, female; Shortness of breath; Patient HX: Persistent tachycardia; SOB; Recent hospitalization TECHNIQUE: Imaging protocol: Axial computed tomographic angiography images of the chest with intravenous contrast using CT angiography protocol. Coronal and sagittal reformatted images were created and reviewed. 3D rendering: MIP reconstructed images were created and reviewed. We'll COMPARISON: CT CHEST FOR PULMONARY EMBOLUS 09/07/2016 8:02 PM FINDINGS: Pulmonary arteries: No pulmonary artery filling defects to segmental level. Evaluation more distally limited. Aorta: New aortic dissection extending from the aortic annulus distally to mid to distal descending aorta. Thoracic aorta is dilated to approximately 4 cm at the aortic root, 4 cm in the ascending, 4.2 cm in proximal to mid transverse and 3.6 cm in descending portion. All diameters increased from 2017. It tapers more distally measuring approximately 2 cm at level of diaphragmatic hiatus. Supra-aortic vessels arise from left aortic arch. All are patent without stenosis or evidence of dissection. Lungs: Unremarkable. No consolidation. No masses. Pleural space: Small left pleural effusion. Heart: Small pericardial effusion. Coronary artery calcifications. Kidneys and ureters: Simple cyst left kidney. Lesions too small to characterize in left kidney. Lymph nodes: Unremarkable. No enlarged lymph nodes. Bones/joints: The spine demonstrates mild degenerative changes at multiple levels. Soft tissues: Unremarkable. IMPRESSION: 1. Brook type A aortic dissection. 2. Coronary artery disease. 3. Small left pleural effusion. 4. Small pericardial effusion. THIS REPORT CONTAINS FINDINGS THAT MAY BE CRITICAL TO PATIENT CARE. The findings were verbally communicated via telephone conference with Dr. Gentry Betancourt, 11/12/2018 5:54 AM EDT. The findings were acknowledged and understood. Dictated and Authenticated by: Trung Rene MD. Ordering:MANDO Rinaldi MD
[2018-11-12] MEDS: ESMOLOL 2,500 MG/250 ML BAG 11.226 MG IV (05:59)
[2018-11-12 06:25] LABS: C & S Indicated? Yes
[2018-11-12] MEDS: dilTIAZem 125 MG in Normal Saline 100 ML IV (06:56)
--- NOTE | 2018-11-14 10:48 | NUR.NOTE ---
patient tx to [facility] [place] final urine culture report faxed to [facility] [phone] Note:
== END 2018-11-12 07:16 | disposition short-term general hospital (02) ==
PROVIDERS: Emergency Provider Emergency Medicine; PCP Nurse Practitioner Family
DX: R10.13 Epigastric pain (principal); R00.0 Tachycardia, unspecified; I71.01 Dissection of thoracic aorta; E83.42 Hypomagnesemia; I25.10 Atherosclerotic heart disease of native coronary artery without angina pectoris; J44.9 Chronic obstructive pulmonary disease, unspecified; Z87.891 Personal history of nicotine dependence; I10 Essential (primary) hypertension; Z99.81 Dependence on supplemental oxygen
CPT/HCPCS: 36415; 51702; 71275; 80053; 83690; 93005; 96361; 96365; 96366; 96368; 96375; 99291; 71046; 81003; 81015; 83735; 84484; 85025; 87086; 93010; J2060; J3490